=== PATIENT | female | born 1950 | race Caucasian/White ===

== ENCOUNTER 2022-09-16 10:32 | Inpatient (IN) | payer OTHER ==
[~2022-09-16] VITALS: Ht 185.4 cm; Wt 74.3 kg
[2022-09-16] MEDS ORDERED: FUROSEMIDE 40 MG/4 ML VIAL IV ONE (10:45)
[2022-09-16] MEDS ORDERED: DIGOXIN (250MCG/ML) 2 ML AMPULE IV ONE (10:45)
[2022-09-16 11:13] LABS: Basophils # (auto) 0 10 ^3/uL (0-0.2); Eosinophils # (auto) 0.1 10 ^3/uL (0-0.8); Hemoglobin 12.8 g/dL (12.2-16.2); Mean Corpuscular Hemoglobin 26.8 pg (28.0-32.0); Monocytes # (auto) 0.9 10 ^3/uL (0-1.3); Neutrophils # (auto) 2.9 10 ^3/uL (1.6-8.6); Nucleated Red Blood Cells % 0.1 %; White Blood Cell 4.9 10^3/uL (4.4-10.8)
[2022-09-16 11:14] LABS: Basophils % (auto) 0.3 % (0.0-2.0); Eosinophils % (auto) 1.9 % (0.0-7.0); Hematocrit 39.3 % (36.0-46.0); Lymphocytes % (auto) 20.1 % (10.0-50.0); Mean Corpuscular Hgb Conc. 32.5 g/dL (32.0-36.0); Mean Corpuscular Volume 82.6 fL (80.0-100.0); Monocytes % (auto) 18.2 % (0.0-12.0); Neutrophils % (auto) 59.5 % (37.0-80.0); Red Blood Cells 4.76 10^6/uL (4.0-5.20); Red Cell Distribution Width 14.8 % (11.8-14.3)
[2022-09-16 11:37] LABS: Albumin 3.8 g/dL (3.4-5.0); BUN/Creatinine Ratio 22.2 (10.0-20.0); Calcium 8.9 mg/dL (8.5-10.1); Magnesium 2.3 mg/dL (1.6-2.6); Potassium 4.1 mmol/L (3.5-5.1)
[2022-09-16 11:40] LABS: Bilirubin, Total 0.8 mg/dL (0.2-1.0); Total Protein 6.5 g/dL (6.4-8.2)
[2022-09-16] MEDS ORDERED: METOPROLOL TARTRATE 1MG/1ML-5ML VIAL IV ONE ×2 (11:45→12:15)
[2022-09-16] MEDS ORDERED: dilTIAZem 25 MG/5 ML VIAL IV ONE ×2 (13:00→15:15)
[2022-09-16 14:27] LABS: Urine Bacteria MANY /hpf (None Seen); Urine Blood Negative /uL (Negative); Urine Hyaline Cast FEW /lpf (0 - 2); Urine Mucus FEW (None Seen); Urine Specific Gravity 1.007 (1.001-1.035); Urine WBC 1 /hpf (0 - 5)
[2022-09-16] MEDS ORDERED: dilTIAZem 125mg/125ml BAG KIT 125 ML IV ONE (15:15)
[2022-09-16] MEDS ORDERED: MORPHINE SULFATE INJ 2 MG/ml SYRG IV PRN (19:00)
[2022-09-16] MEDS ORDERED: DOCUSATE SOD 100 MG CAP PO PRN (19:00)
[2022-09-16] MEDS ORDERED: ACETAMINOPHEN 325 MG TAB PO PRN (19:00)
[2022-09-16] MEDS ORDERED: HYDROmorphone HCL 2 MG/ML VL/or syr IV PRN (19:00)
[2022-09-16] MEDS ORDERED: HYDROcodone-ACET 5/325MG TAB PO PRN (19:00)
[2022-09-16] MEDS ORDERED: NITROGLYCERIN 0.4 MG SL TAB SL PRN (19:00)
[2022-09-16] MEDS: ENOXAPARIN SOD 80 MG/0.8ML SYRINGE SC SCH (23:00)
[2022-09-16] MEDS: SODIUM CHLOR 0.9% PF (SALINE LOCK) 10ML VIAL/SYR IV SCH (23:00)
[2022-09-16] MEDS: METOPROLOL TARTRATE 25 MG TAB PO SCH (23:01)
[2022-09-17] VITALS (75 sets, daily range): BP systolic 76–125; BP diastolic 47–89
[2022-09-17] MEDS: dilTIAZem 125mg/125ml BAG KIT 125 ML IV SCH (03:00)
[2022-09-17] MEDS: SODIUM CHLOR 0.9% PF (SALINE LOCK) 10ML VIAL/SYR IV SCH ×3 (05:31→21:36)
[2022-09-17] MEDS ORDERED: OMEP20TA PO (07:10)
[2022-09-17] MEDS: ENOXAPARIN SOD 80 MG/0.8ML SYRINGE SC SCH ×2 (10:15→21:34)
[2022-09-17] MEDS: METOPROLOL TARTRATE 25 MG TAB PO SCH ×2 (10:16→21:35)
[2022-09-17] MEDS ORDERED: FUROSEMIDE 20 MG/2 ML VIAL IV ONE (10:45)
[2022-09-17] MEDS ORDERED: METOPROLOL TARTRATE 25 MG TAB PO ONE (10:45)
[2022-09-17] MEDS ORDERED: POTASSIUM CHL 20 Meq TABLET PO ONE (10:45)
[2022-09-17 12:01] LABS: BUN/Creatinine Ratio 17.3 (10.0-20.0); Calcium 8.7 mg/dL (8.5-10.1); Magnesium 2.3 mg/dL (1.6-2.6); Potassium 3.8 mmol/L (3.5-5.1)
[2022-09-17] MEDS ORDERED: DIGOXIN (250MCG/ML) 2 ML AMPULE IV ONE (13:00)
[2022-09-17] MEDS: ONDANSETRON HCL 4 MG/2 ML VIAL IV PRN (15:22)
[2022-09-17] MEDS ORDERED: PANTOPRAZOLE 40 MG/10 ML VIAL INJ IV ONE (17:45)
[2022-09-17] MEDS: FUROSEMIDE 20 MG/2 ML VIAL IV SCH (17:45)
[2022-09-17] MEDS: POTASSIUM CHL 20 Meq TABLET PO SCH (21:35)
[2022-09-18] VITALS (76 sets, daily range): BP systolic 86–126; BP diastolic 45–82
[2022-09-18] MEDS: dilTIAZem 125mg/125ml BAG KIT 125 ML IV SCH (03:30)
[2022-09-18 04:39] LABS: Magnesium 2.2 mg/dL (1.6-2.6); Potassium 3.9 mmol/L (3.5-5.1)
[2022-09-18 04:41] LABS: BUN/Creatinine Ratio 18.8 (10.0-20.0)
[2022-09-18] MEDS: FUROSEMIDE 20 MG/2 ML VIAL IV SCH ×2 (06:23→17:34)
[2022-09-18] MEDS: SODIUM CHLOR 0.9% PF (SALINE LOCK) 10ML VIAL/SYR IV SCH ×3 (06:23→21:40)
[2022-09-18] MEDS: POTASSIUM CHL 20 Meq TABLET PO SCH ×2 (09:41→21:40)
[2022-09-18] MEDS: ENOXAPARIN SOD 80 MG/0.8ML SYRINGE SC SCH ×2 (09:41→21:40)
[2022-09-18] MEDS: PANTOPRAZOLE 40 MG TAB PO SCH (09:41)
[2022-09-18] MEDS: METOPROLOL TARTRATE 25 MG TAB PO SCH ×2 (10:00→21:41)
[2022-09-18] MEDS ORDERED: PANTOPRAZOLE 40 MG/10 ML VIAL INJ IV SCH (10:00)
[2022-09-18] MEDS ORDERED: AMIODARONE HCL 200 MG TAB PO ONE (10:30)
[2022-09-18] MEDS ORDERED: DIGOXIN (250MCG/ML) 2 ML AMPULE IV ONE (10:30)
[2022-09-18] MEDS: ONDANSETRON HCL 4 MG/2 ML VIAL IV PRN (12:37)
[2022-09-18] MEDS: AMIODARONE HCL 200 MG TAB PO SCH (21:40)
[2022-09-19] VITALS (49 sets, daily range): BP systolic 81–121; BP diastolic 48–95
[2022-09-19 04:51] LABS: Hematocrit 37.8 % (36.0-46.0); Hemoglobin 12.6 g/dL (12.2-16.2); Mean Corpuscular Hemoglobin 27.3 pg (28.0-32.0); Mean Corpuscular Hgb Conc. 33.3 g/dL (32.0-36.0); Mean Corpuscular Volume 81.8 fL (80.0-100.0); Red Blood Cells 4.62 10^6/uL (4.0-5.20); Red Cell Distribution Width 14.1 % (11.8-14.3); White Blood Cell 7.7 10^3/uL (4.4-10.8)
[2022-09-19 04:52] LABS: Basophils % (manual) 0 (0.0-2.0); Blast Cells 0; Eosinophils % (manual) 0 (0-7); Promyelocytes % 0; Reactive Lymphocytes 0
[2022-09-19 05:24] LABS: BUN/Creatinine Ratio 17.4 (10.0-20.0); Calcium 8.1 mg/dL (8.5-10.1); Potassium 3.9 mmol/L (3.5-5.1)
[2022-09-19] MEDS: FUROSEMIDE 20 MG/2 ML VIAL IV SCH ×2 (06:00→19:17)
[2022-09-19] MEDS: SODIUM CHLOR 0.9% PF (SALINE LOCK) 10ML VIAL/SYR IV SCH ×2 (06:14→16:10)
[2022-09-19 07:57] LABS: Band Neutrophils % (manual) 8; Lymphocytes % (manual) 12 (10.0-50.0); Metamyelocytes % 3; Monocytes % (manual) 12 (0-12); Myelocytes % 3
[2022-09-19] MEDS: METOPROLOL TARTRATE 25 MG TAB PO SCH (10:00)
[2022-09-19] MEDS: POTASSIUM CHL 20 Meq TABLET PO SCH (10:38)
[2022-09-19] MEDS: ENOXAPARIN SOD 80 MG/0.8ML SYRINGE SC SCH (10:38)
[2022-09-19] MEDS: PANTOPRAZOLE 40 MG TAB PO SCH (10:39)
[2022-09-19] MEDS: AMIODARONE HCL 200 MG TAB PO SCH (10:40)
[2022-09-19] MEDS ORDERED: cefTRIAXone 1GM/50ML D5W 50 ML IV SCH (12:15)
== END 2022-09-19 21:02 | disposition short-term general hospital (02) | DRG 291 ==
LOC: ER 10:32 → EDBD 10:32 → TELE 19:05 → ICU WEST 09-17 02:10 → DOU IN ICU 09-18 23:07
PROVIDERS: ADMIT Nurse Practitioner Acute Care; ATTEND Nurse Practitioner Acute Care
DX: I50.21 Acute systolic (congestive) heart failure (principal); J96.01 Acute respiratory failure with hypoxia; J91.8 Pleural effusion in other conditions classified elsewhere; I48.91 Unspecified atrial fibrillation; Z20.822 Contact with and (suspected) exposure to COVID-19; Z87.11 Personal history of peptic ulcer disease
CPT/HCPCS: 36415; 71045; 80048; 80053; 81001; 83516; 83735; 83880; 84439; 84443; 84484; 85007; 85025; 85027; 86141; 86225; 86235; 86431; 87081; 87426; 93005; 93306; 93970; 96365; 96375; 96376; 99291; G0378; J0696; J2405

== ENCOUNTER 2024-11-02 20:31 | Inpatient (IN) | payer OTHER ==
[~2024-11-02] VITALS: Ht 172.7 cm; Wt 69.5 kg
[~2024-11-02 20:31] MED LIST: OMEP20TA PO
--- NOTE | 2024-11-02 20:47 | ED.PDOC ---
SOB-HPI HPI Comments 74 year old female presents to the ED via EMS with a chief complaint of shortness of breath onset 2 days. Per EMS, patient was diagnosed with COVID 2 days ago, since then shortness of breath has worsened. Patient was placed on NRB, was given IV fluids in route to ED. Patient's HR was between 160-180. PMHx a-fib. Denies nausea, vomiting, diarrhea, headache, dizziness. No other symptoms or modifying factors present at this time. Time Seen by MD: 20:40 Primary Care Provider: Darron Delcid notes: Medications, Allergies Information Source: Patient, Emergency Med Personnel Mode of Arrival: EMS Severity: Moderate Timing: Days Duration: Since onset Context: At Rest PE Risk Factors: None History of: Recent URI Prehospital treatment: IVF, Oxygen Past Medical History PAST MEDICAL HISTORY: AFIB Surgical History: Tonsillectomy CHEF SAUCIER History: Denies all CHEF SAUCIER Hx Family History Family History: Reviewed,noncontributory to illness Social History Smoker: Non-Smoker Alcohol: Occasionally Drugs: Denies Drug Use Lives In: Home Constitutional: denies: chills, diaphoresis, fatigue, fever, malaise, sweats, weakness, others EENTM: denies: blurred vision, double vision, ear bleeding, ear discharge, ear drainage, ear pain, ear ringing, eye pain, eye redness, hearing loss, mouth pain, mouth swelling, nasal discharge, nose bleeding, nose congestion, nose pain, photophobia, tearing, throat pain, throat swelling, voice changes, others Respiratory: reports: shortness of breath; denies: cough, hemoptysis, orthopnea, SOB at rest, SOB with excertion, stridor, wheezing, others Cardiovascular: denies: chest pain, dizzy spells, diaphoresis, Dyspnea on exertion, edema, irregular heart beat, left arm pain, lightheadedness, palpitations, PND, syncope, others Gastrointestinal: denies: abdomen distended, abdominal pain, blood streaked bowels, constipated, diarrhea, dysphagia, difficulty swallowing, hematemesis, melena, nausea, poor appetite, poor fluid intake, rectal bleeding, rectal pain, vomiting, others Genitourinary: denies: abnormal vagina bleeding, burning, dyspareunia, dysuria, flank pain, frequency, hematuria, incontinence, pain, , vagina discharge, urgency, others Neurological: denies: dizziness, fainting, headache, left sided numbness, left sided weakness, numbness, paresthesia, pre-existing deficit, right sided numbness, right sided weakness, seizure, speech problems, tingling, tremors, weakness, others Musculoskeletal: denies: back pain, gout, joint pain, joint swelling, muscle pain, muscle stiffness, neck pain, others Integumetry: denies: bruises, change in color, change in hair/nails, dryness, laceration, lesions, lumps, rash, wounds, others Allergic/Immunocompromised: denies: Difficulty Healing, Frequent Infections, Hives, Itching, others Hematologic/Lymphatic: denies: anemia, blood clots, easy bleeding, easy bruising, swollen glands, others Endocrine: denies: excessive hunger, excessive sweating, excessive thirst, excessive urination, flushing, intolerance to cold, intolerance to heat, un explained weight gain, unexplained weight loss, others Psychiatric: denies: anxiety, bipolar disorder, depression, hopeless, panic disorder, schizophrenia, sleepless, suicidal, others All Other Systems: Reviewed and Negative Physical Exam General Appearance: Normal HEENT: Normal ENT Inspection, Pharynx Normal, TMs Normal Neck: Full Range of Motion, Non-Tender, Normal, Normal Inspection Respiratory: Chest Non-Tender, Lungs Clear, No Accessory Muscle Use, No Respiratory Distress, Normal Breath Sounds Cardiovascular: No Edema, No JVD, No Murmur, No Gallop, Normal Peripheral Pulses, Regular Rate/Rhythm Breast Exam: Deferred Gastrointestinal: No Organomegaly, Non Tender, No Pulsatile Mass, Normal Bowel Sounds, Soft Genitalia: Deferred Pelvic: Deferred Rectal: Deferred Extremities: No calf tenderness, Normal capillary refill, Normal inspection, Normal range of motion, Non-tender, No pedal edema Musculoskeletal : Apperance: Normal Neurologic: Alert, events director II-XII nml as Tested, No Motor Deficits, Normal Affect, Normal Mood, No Sensory Deficits Cerebellar Function: Normal Reflexes: Normal Skin: Dry, Normal Color, Warm Lymphatic: No Adenopathy Was a procedure done? Was a procedure done?: No Differential Dx Differential Diagnosis: Asthma, Bronchitis, CHF, COPD, Pneumonia, Pneumothorax, Pulmonary Embolism, Respiratory Distress, URI, Other X-Ray, Labs, Meds, VS Vital Signs Date Time Temp Pulse Resp B/P (MAP) Pulse Ox O2 Delivery O2 Flow Rate FiO2 11/02/24 22:01 92 Non-Rebreather 15 N/A 11/02/24 21:45 25 92 Non-Rebreather 15 N/A 11/02/24 21:42 98.3 147 25 155/123 (134) 92 98.3 11/02/24 20:39 99.7 145 30 123/61 91 99.7 11/02/24 20:33 145 Lab Test 11/02/24 21:58 11/02/24 21:00 Range/Units Troponin I High Sensitivity 42 *H 18 </=34 ng/L White Blood Count 2.4 L 4.4-10.8 10^3/uL Red Blood Count 4.12 4.0-5.20 10^6/uL Hemoglobin 11.1 L 12.2-16.2 g/dL Hematocrit 34.1 L 36.0-46.0 % Mean Corpuscular Volume 82.8 80.0-100.0 fL Mean Corpuscular Hemoglobin 27.0 L 28.0-32.0 pg Mean Corpuscular Hemoglobin Concent 32.6 32.0-36.0 g/dL Red Cell Distribution Width 19.2 H 11.8-14.3 % Platelet Count 53 L 140-450 10^3/uL Mean Platelet Volume 9.3 6.9-10.8 fL Neutrophils (%) (Auto) 37.0-80.0 % Lymphocytes (%) (Auto) 10.0-50.0 % Monocytes (%) (Auto) 0.0-12.0 % Basophils (%) (Auto) 0.0-2.0 % Neutrophils # (Auto) 1.6-8.6 10 ^3/uL Lymphocytes # (Auto) 0.4-5.4 10 ^3/uL Monocytes # (Auto) 0-1.3 10 ^3/uL Differential Total Cells Counted 100.0 100 Neutrophils % (Manual) 65 37.0-80.0 Band Neutrophils % (Manual) 0 Lymphocytes % (Manual) 14 10.0-50.0 Monocytes % (Manual) 21 H 0-12 Eosinophils % (Manual) 0 0-7 Basophils % (Manual) 0 0.0-2.0 Metamyelocytes % (manual) 0 Myelocytes % (Manual) 0 Promyelocytes % (Manual) 0 Blast Cells % (Manual) 0 Reactive Lymphocytes 0 Platelet Estimate Decreased Anisocytosis (manual) Slight Tanya Cells Few Prothrombin Time 13.0 H 9.3-11.8 sec Prothrombin Time INR 1.25 H 0.9-1.15 Activated Partial Thromboplast Time 43.2 H 24.5-34.5 SEC Sodium Level 142 136-145 mmol/L Potassium Level 4.0 3.5-5.1 mmol/L Chloride Level 107 98-107 mmol/L Carbon Dioxide Level 22 20-31 mmol/L Anion Gap 13 5-15 Blood Urea Nitrogen 18 9-23 mg/dL Creatinine 1.16 H 0.550-1.02 mg/dL Glomerular Filtration Rate Calc 49 >90 mL/min BUN/Creatinine Ratio 15.5 10.0-20.0 Serum Glucose 155 H 74-106 mg/dL Lactic Acid Level 2.8 *H 0.4-2.0 mmol/L Calcium Level 8.0 L 8.7-10.4 mg/dL Total Bilirubin 0.5 0.2-1.0 mg/dL Aspartate Amino Transferase (AST) 56 H 13-40 U/L Alanine Aminotransferase (ALT) 38 7-40 U/L Alkaline Phosphatase 59 46-116 U/L B-Type Natriuretic Peptide 376.54 0-100 pg/mL Total Protein 6.1 5.7-8.2 g/dL Albumin 4.2 3.2-4.8 g/dL Current Medications Medications (Trade) Dose Ordered Sig/Juan Route Start Time Stop Time Status Last Admin Amiodarone HCl 100 ml @ 600 mls/hr ONCE ONCE IV 11/02/24 20:45 11/02/24 20:54 DC 11/02/24 21:36 Amiodarone HCL/ Dextrose 200 ml @ 33.33 mls/ hr ONCE ONCE IV 11/02/24 21:00 11/03/24 03:00 11/02/24 21:50 Time of 1ST Reevaluation: 21:10 Reevaluation 1ST: Unchanged Patient Education/Counseling: Diagnosis, Treatment Family Education/Counseling: No Family Present SEPSIS Sepsis Screen Physician Orders Electrocardigram (11/02/24 20:45) Electrocardigram (11/02/24 23:45) Troponin-I Hs (11/03/24 00:00) Troponin-I Hs (11/03/24 03:00) Troponin-I Hs (11/03/24 06:00) Blood Culture (11/02/24 20:44) Chest Portable (11/02/24 20:44) Cylinder Handler (11/02/24 20:44) Covid19 Antigen Taylor (11/02/24 ) Rapid Influenza A&B (11/02/24 20:44) Amiodarone 360mg/200ml Premix (Nexterone (11/02/24 21:00) Amiodarone 360mg/200ml Premix (Nexterone (11/03/24 03:00) Ceftriaxone 1gm/50ml D5w (Rocephin) (11/02/24 22:45) Azithromycin 500mg/ 250ml (Zithromax 50 (11/02/24 22:45) Aspirin Tablet (11/02/24 22:45) Vital Signs Date Time Temp Pulse Resp B/P (MAP) Pulse Ox O2 Delivery O2 Flow Rate FiO2 11/02/24 22:01 92 Non-Rebreather 15 N/A 11/02/24 21:45 25 92 Non-Rebreather 15 N/A 11/02/24 21:42 98.3 147 25 155/123 (134) 92 98.3 11/02/24 20:39 99.7 145 30 123/61 91 99.7 11/02/24 20:33 145 Laboratory Tests Test 11/02/24 21:00 Lactic Acid Level 2.8 mmol/L (0.4-2.0) *H White Blood Count 2.4 10^3/uL (4.4-10.8) L Medications Medications Dose Ordered Sig/Juan Route Start Time Stop Time Status Last Admin Dose Admin Amiodarone HCl 100 ml @ 600 mls/hr ONCE ONCE IV 11/02/24 20:45 11/02/24 20:54 DC 11/02/24 21:36 Amiodarone HCL/ Dextrose 200 ml @ 33.33 mls/ hr ONCE ONCE IV 11/02/24 21:00 11/03/24 03:00 11/02/24 21:50 Departure 1 Departure Time of Disposition: 22:39 Impression: Primary Impression: Atrial fibrillation with rapid ventricular response Additional Impressions: Pneumonia Acute coronary syndrome Disposition: 09 ADMITTED INPATIENT Admit to: Med Surg Condition: Guarded Comments Lab and chest x-ray results reviewed. Troponin is rising and lactic acid mildly elevated 2.8. Chest x-ray suggests pneumonia. Patient was given aspirin and started on amiodarone for rate control of her AFib and given IV antibiotics for pneumonia. Patient will need admission for AFib with rapid ventricular response, pneumonia and acute coronary syndrome Critical Care Note Critical Care Time?: No Stability Stability form required: No Heart Score Heart Score: Heart Score Response (Comments) Value History Moderate Suspicious 1 EKG Repolarization Disturb 1 Age >65 2 Risk Factors >3 or Hx ASHD 2 Troponin 1-2 x's Normal limit 1 Total 7 I personally scribed for TEVIN RUIZ MD ([email or web address]) on 11/02/24 at 20:47. Electronically submitted by Alodnra Raphael ([email or web address]). TEVIN RUIZ MD Nov 02, 2024 20:47
[2024-11-02 21:35] LABS: Hematocrit 34.1 % (36.0-46.0)
[2024-11-02] MEDS: AMIODARONE BOLUS KIT 100 ML IV ONE (21:36)
[2024-11-02 21:39] LABS: Hemoglobin 11.1 g/dL (12.2-16.2); Mean Corpuscular Hemoglobin 27.0 pg (28.0-32.0); Mean Corpuscular Volume 82.8 fL (80.0-100.0)
[2024-11-02 21:45] VITALS: RESP 25; O2SAT 92
[2024-11-02 21:45] LABS: INR 1.25 (0.9-1.15); Partial Thromboplastin Time 43.2 SEC (24.5-34.5); Prothrombin Time 13.0 sec (9.3-11.8)
[2024-11-02] MEDS: AMIODARONE 360mg/200mL PREMIX 200 ML IV ONE (21:50)
[2024-11-02 21:53] LABS: Lactic Acid w/Reflex 2.8 mmol/L (0.4-2.0)
[2024-11-02 21:58] LABS: Alanine Aminotransferase 38 U/L (7-40); Albumin 4.2 g/dL (3.2-4.8); Alkaline Phosphatase 59 U/L (46-116); Anion Gap 13 (5-15); BUN/Creatinine Ratio 15.5 (10.0-20.0); Bilirubin, Total 0.5 mg/dL (0.2-1.0); Blood Urea Nitrogen 18 mg/dL (9-23); Carbon Dioxide 22 mmol/L (20-31); Potassium 4.0 mmol/L (3.5-5.1); Sodium 142 mmol/L (136-145); Total Protein 6.1 g/dL (5.7-8.2)
[2024-11-02 21:59] LABS: Calcium 8.0 mg/dL (8.7-10.4); Chloride 107 mmol/L (98-107); Glucose 155 mg/dL (74-106)
--- NOTE | 2024-11-02 22:14 | DVH ---
EXAMINATION: XY CHEST PORTABLE CLINICAL HISTORY: SOB COMPARISON: XY CHEST PORTABLE on DOS: 09/19/22, XY CHEST PORTABLE on DOS: 09/16/22 FINDINGS: Apices partially obscured. Lead wires overlie the thorax. Streaky bibasilar opacities. Central vascular redistribution. Large airspace opacity right lower lung field. Prominence of the cardiac silhouette may be in part exaggerated by technique. No definite pneumothora x or pleural effusion. IMPRESSION: Large airspace opacity in the right lower lung field may be of infectious etiology. Additional bibasilar atelectasis/infiltrates as well. Pulmonary vascular congestion.
[2024-11-02 22:20] LABS: Total Cells Counted 100.0 (100)
[2024-11-02 22:22] LABS: Anisocytosis Slight
[2024-11-02] MEDS: cefTRIAXone 1GM/50ML D5W 50 ML IV ONE (22:56)
[2024-11-02] MEDS: AZITHROMYCIN 500MG/ 250ML 250 ML IV ONE (23:24)
[2024-11-03] VITALS (11 sets, daily range): BP systolic 91–101; BP diastolic 57–69; PULSE 104–135; RESP 13–29; TEMP 97.9–98.3; O2SAT 91–99
[2024-11-03] LABS: COVID19 ANTIGEN SOFIA FIA POSITIVE (NEGATIVE)
[2024-11-03] MEDS: NOREPINEPHRINE 8 MG/250ML KIT 250 ML IV SCH (00:30)
[2024-11-03] MEDS: SODIUM CHLORIDE 0.9% 1,000 ML IV ONE (00:49)
[2024-11-03] MEDS: AMIODARONE 360mg/200mL PREMIX 200 ML IV SCH (03:23)
--- NOTE | 2024-11-03 10:51 | ECG ---
[facility] Test Date: 2024-11-02 Test Time: 20:33:40 Pat Name: PILY MONTENEGRO Department: Room: [address] [place] [address] Gender: F Security Clerk: : 1950 Requested By: TEVIN RUIZ Order Number: [id number] Reading MD: Ravindra Cooper Measurements Intervals [place] Rate: 145 P: 0 OH: 0 QRS: -20 QRSD: 92 T: 134 QT: 343 QTc: 533 Interpretive Statements Atrial fibrillation with rapid V-rate Borderline left axis deviation Low voltage, precordial leads Nonspecific T abnrm, anterolateral leads Electronically Signed On 11-03-2024 13:12:35 PDT by Ravindra Cooper Please click the below link to view image of tracing.
--- NOTE | 2024-11-03 10:53 | DVHHP2 ---
History of Present Illness Reason for Visit: Shortness of breath History of Present Illness Leticia Cordero is a 74-year-old female with past medical history of AFib, CHF, hypertension, and tonsillectomy who presents to the ED with shortness of breath that has been worsening in the last 2 days. Patient reports that she was at [facility] 2 days ago and was diagnosed with COVID. Per reports patient was placed on non-rebreather was given IV fluids EN route to the ED with a heart rate between 160-180. Upon examination patient is currently on 8 L mustache Oxymizer also noted is at drainage and Woodruff is cloudy. Patient reports that she did not take her medications for the last 2 days. Patient denies any recent travels, recent sick contacts, recent ingestion of spoiled food, recent travels, fever, chills, lightheadedness, weakness, dizzi ness, chest pain, abdominal pain, nausea, vomiting, or diarrhea. Nurse reports that patient just started coughing up blood once patient was already examined. Cardiovascular: AFIB, CHF, HTN Past Surgical History: Tonsillectomy Family History: None Smoke: No ALCOHOL: none Drugs: None Lives: with Family Domestic Violence: Neg Review of Systems Respiratory: Shortness of breath Allergies: Coded Allergies: NO KNOWN ALLERGIES (Unverified , 09/16/22) Medications Current Medications Medications Dose Ordered Sig/Juan Route Start Time Stop Time Status Last Admin Dose Admin Amiodarone HCL/ Dextrose 200 ml @ 16.66 mls/ hr Q12H IV 11/03/24 03:00 11/03/24 03:23 16.66 MLS/HR Norepinephrine Bitartrate 250 ml @ 3.75 mls/hr Q24H IV 11/03/24 00:30 Exam Vital Signs Vital Signs Date Time Temp Pulse Resp B/P (MAP) Pulse Ox O2 Delivery O2 Flow Rate FiO2 11/03/24 07:30 104 18 88/62 (71) 95 11/03/24 07:30 Non-Rebreather 15 N/A 11/02/24 21:42 98.3 98.3 General Appearance: Alert, Oriented X3, Cooperative, mild distress HEENT: Atraumatic, PERRLA, EOMI, Mucous membr. moist/pink Cardiovascular: Normal S1, Normal S2 Abdominal: Normal bowel sounds, Soft Extremities: No tenderness/swelling Neuro: Normal speech, Normal tone, Sensation intact Psych/Mental Status: Mental status NL, Mood NL Labs/Xrays Labs Test 11/03/24 06:31 11/02/24 23:03 11/02/24 23:02 11/02/24 21:00 Range/Units Troponin I High Sensitivity 222 *H </=34 ng/L Influenza Type A Antigen Negative Negative Influenza Type B Antigen Negative Negative SARS-CoV-2 Antigen (Rapid) Positive NEGATIVE Lactic Acid Level 2.5 *H 0.4-2.0 mmol/L White Blood Count 2.4 L 4.4-10.8 10^3/uL Red Blood Count 4.12 4.0-5.20 10^6/uL Hemoglobin 11.1 L 12.2-16.2 g/dL Hematocrit 34.1 L 36.0-46.0 % Mean Corpuscular Volume 82.8 80.0-100.0 fL Mean Corpuscular Hemoglobin 27.0 L 28.0-32.0 pg Mean Corpuscular Hemoglobin Concent 32.6 32.0-36.0 g/dL Red Cell Distribution Width 19.2 H 11.8-14.3 % Platelet Count 53 L 140-450 10^3/uL Mean Platelet Volume 9.3 6.9-10.8 fL Neutrophils (%) (Auto) 37.0-80.0 % Lymphocytes (%) (Auto) 10.0-50.0 % Monocytes (%) (Auto) 0.0-12.0 % Basophils (%) (Auto) 0.0-2.0 % Neutrophils # (Auto) 1.6-8.6 10 ^3/uL Lymphocytes # (Auto) 0.4-5.4 10 ^3/uL Monocytes # (Auto) 0-1.3 10 ^3/uL Differential Total Cells Counted 100.0 100 Neutrophils % (Manual) 65 37.0-80.0 Band Neutrophils % (Manual) 0 Lymphocytes % (Manual) 14 10.0-50.0 Monocytes % (Manual) 21 H 0-12 Eosinophils % (Manual) 0 0-7 Basophils % (Manual) 0 0.0-2.0 Metamyelocytes % (manual) 0 Myelocytes % (Manual) 0 Promyelocytes % (Manual) 0 Blast Cells % (Manual) 0 Reactive Lymphocytes 0 Platelet Estimate Decreased Anisocytosis (manual) Slight Tanya Cells Few Prothrombin Time 13.0 H 9.3-11.8 sec Prothrombin Time INR 1.25 H 0.9-1.15 Activated Partial Thromboplast Time 43.2 H 24.5-34.5 SEC Sodium Level 142 136-145 mmol/L Potassium Level 4.0 3.5-5.1 mmol/L Chloride Level 107 98-107 mmol/L Carbon Dioxide Level 22 20-31 mmol/L Anion Gap 13 5-15 Blood Urea Nitrogen 18 9-23 mg/dL Creatinine 1.16 H 0.550-1.02 mg/dL Glomerular Filtration Rate Calc 49 >90 mL/min BUN/Creatinine Ratio 15.5 10.0-20.0 Serum Glucose 155 H 74-106 mg/dL Calcium Level 8.0 L 8.7-10.4 mg/dL Total Bilirubin 0.5 0.2-1.0 mg/dL Aspartate Amino Transferase (AST) 56 H 13-40 U/L Alanine Aminotransferase (ALT) 38 7-40 U/L Alkaline Phosphatase 59 46-116 U/L B-Type Natriuretic Peptide 376.54 0-100 pg/mL Total Protein 6.1 5.7-8.2 g/dL Albumin 4.2 3.2-4.8 g/dL EXAMINATION: XY CHEST PORTABLE CLINICAL HISTORY: SOB COMPARISON: XY CHEST PORTABLE on DOS: 09/19/22, XY CHEST PORTABLE on DOS: 09/16/22 FINDINGS: Apices partially obscured. Lead wires overlie the thorax. Streaky bibasilar opacities. Central vascular redistribution. Large airspace opacity right lower lung field. Prominence of the cardiac silhouette may be in part exaggerated by technique. No definite pneumothorax or pleural effusion. IMPRESSION: Large airspace opacity in the right lower lung field may be of infectious etiology. Additional bibasilar atelectasis/infiltrates as well. Pulmonary vascular congestion. SEPSIS Sepsis Screen Date sepsis recognized/suspect: Nov 02, 2024 Time Sepsis recognized/suspect: 2141 Recent Procedure: No On Antibiotic Therapy: No Respiratory Rate >20: Yes Heart Rate >90: Yes Temp<36 C (96.8 F) or >38.3 C: No SBP <90 or MAP <65 mmHG: No New Acute Mental Status Change: No Is the patient on CPAP, BIPAP,: No Physician Orders Insert/Manage Urinary Catheter QSHIFT (11/03/24 04:22) Vital Signs Date Time Temp Pulse Resp B/P (MAP) Pulse Ox O2 Delivery O2 Flow Rate FiO2 11/03/24 07:30 104 18 88/62 (71) 95 11/03/24 07:30 104 18 95 Non-Rebreather 15 N/A 11/03/24 06:58 109 21 93/65 (74) 95 11/03/24 06:00 94 15 93/58 (70) 94 11/03/24 05:00 98 16 91/62 (72) 99 11/03/24 04:00 100 15 88/60 (69) 96 11/03/24 03:00 105 17 95/64 (74) 98 Laboratory Tests Test 11/02/24 23:02 Lactic Acid Level 2.5 mmol/L (0.4-2.0) *H Medications Medications Dose Ordered Sig/Juan Route Start Time Stop Time Status Last Admin Dose Admin Amiodarone HCL/ Dextrose 200 ml @ 16.66 mls/ hr Q12H IV 11/03/24 03:00 11/03/24 03:23 16.66 MLS/HR Sodium Chloride 1,000 ml @ 1,000 mls/hr Q1H ONCE IV 11/03/24 00:30 11/03/24 01:29 DC 11/03/24 00:49 1,000 MLS/HR Assessment/Plan Assessment/Plan Assessment Acute hypoxic respiratory failure requiring supplemental oxygen COVID positive Lactic acidosis likely sepsis Pneumonia Hemoptysis AFib RVR Cloudy urine Woodruff catheterization likely due to UTI Thrombocytopenia Hyperglycemia ANDREW likely prerenal Elevated troponins Medication noncompliance History of tonsillectomy Plan Admit to ICU Strict I&Os Daily weight Echo Amio drip Albuterol and Atrovent treatments Supportive oxygen IV antibiotics-ceftriaxone + azithromycin Lactic noted Steroids Remdesivir Urine culture A1c ISS and Accu-Cheks UA Trend troponins Diet Home medications reconciled DVT prophylaxis-SCDs PUD prophylaxis-PPIs Discussed plan of care with patient and nurse Cardiology consulted Consider CTA chest if hemoptysis Counseled patient on medication adherence [id number] Preventive counseling healthy eating habits, physical activity, and regular checkups Plan discussed with: Patient Date of Service: Nov 03, 2024 Billing Provider: FLORENTINO WARE Common Visit Codes: [id number] INP/OBS CARE (HIGH) Secondary Visit Codes: [id number] COUNSELING IND FLORENTINO WARE LIBRARY SCIENCE INSTRUCTOR Nov 03, 2024 10:53
[2024-11-03] MEDS ORDERED: ONDANSETRON HCL 4 MG/2 ML VIAL IV PRN (11:00)
[2024-11-03] MEDS ORDERED: LISI10TA34 PO (12:33)
[2024-11-03] MEDS ORDERED: BISO5TAB44 PO (12:33)
[2024-11-03] MEDS ORDERED: DABI150C7 PO (12:33)
[2024-11-03] MEDS ORDERED: REMDESIVIR PER PHARMACY 0 ML IV SCH (12:45)
[2024-11-03 12:46] LABS: Urine Protein, UAD 1+ (Negative)
[2024-11-03] MEDS ORDERED: IPRATROPIUM BROM 0.5 MG/2.5ML INH SOL NEB SCH (14:00)
[2024-11-03] MEDS ORDERED: ALBUTEROL SULF 2.5 MG/0.5ML(0.5%) NEB SOLN NEB SCH (14:00)
[2024-11-03] MEDS: ALBUTEROL SULF HFA 90MCG INH 200DOSE IN PRN (16:09)
[2024-11-03] MEDS: methylPREDNISolone SOD SUCC 40 MG/ML VL IV SCH (16:19)
[2024-11-03 16:40] LABS: Alanine Aminotransferase 30 U/L (7-40); Albumin 3.6 g/dL (3.2-4.8); Anion Gap 8 (5-15); BUN/Creatinine Ratio 17.4 (10.0-20.0); Blood Urea Nitrogen 15 mg/dL (9-23); Carbon Dioxide 25 mmol/L (20-31); Potassium 4.1 mmol/L (3.5-5.1); Sodium 143 mmol/L (136-145); Total Protein 5.8 g/dL (5.7-8.2)
[2024-11-03 16:41] LABS: Bilirubin, Total 0.5 mg/dL (0.2-1.0)
[2024-11-03 16:43] LABS: Alkaline Phosphatase 44 U/L (46-116); Calcium 7.9 mg/dL (8.7-10.4); Chloride 110 mmol/L (98-107); Glucose 120 mg/dL (74-106)
[2024-11-03] MEDS: MAGNESIUM SULFATE 1GM/100ML 100 ML IV ONE (17:50)
[2024-11-03] MEDS: AMIODARONE 360mg/200mL PREMIX 200 ML IV ONE (17:55)
[2024-11-03] MEDS: DIGOXIN (250MCG/ML) 2 ML AMPULE IV ONE (18:03)
[2024-11-03] MEDS: REMDESIVIR 200mg in NS 210mL LOADING DOSE ADULT IV ONE (18:19)
[2024-11-03] MEDS ORDERED: PATIENTS OWN MEDICATION (Lisinopril 1 TAB) PO SCH (22:00)
[2024-11-03] MEDS: DOXYCYCLINE 100MG/100ML 100 ML IV SCH (22:40)
[2024-11-04] VITALS (97 sets, daily range): BP systolic 81–120; BP diastolic 55–79; PULSE 81–141; RESP 10–33; TEMP 97.5–97.9; O2SAT 88–100
[2024-11-04] MEDS: FUROSEMIDE 20 MG/2 ML VIAL IV ONE ×3 (02:49→17:59)
[2024-11-04 07:32] LABS: Hemoglobin 11.0 g/dL (12.2-16.2)
[2024-11-04 07:34] LABS: Hematocrit 33.2 % (36.0-46.0); Mean Corpuscular Hemoglobin 26.8 pg (28.0-32.0); Mean Corpuscular Volume 80.8 fL (80.0-100.0)
[2024-11-04 07:36] LABS: Alanine Aminotransferase 24 U/L (7-40); Albumin 3.4 g/dL (3.2-4.8); Anion Gap 7 (5-15); BUN/Creatinine Ratio 23.9 (10.0-20.0); Blood Urea Nitrogen 21 mg/dL (9-23); Carbon Dioxide 26 mmol/L (20-31); Magnesium 2.0 mg/dL (1.6-2.6); Potassium 3.9 mmol/L (3.5-5.1); Sodium 141 mmol/L (136-145)
[2024-11-04 07:37] LABS: Bilirubin, Total 0.6 mg/dL (0.2-1.0)
[2024-11-04 07:57] LABS: Alkaline Phosphatase 43 U/L (46-116); Calcium 7.9 mg/dL (8.7-10.4); Chloride 108 mmol/L (98-107); Glucose 157 mg/dL (74-106); Total Protein 5.4 g/dL (5.7-8.2)
[2024-11-04 09:20] LABS: Triglycerides 63 mg/dL (< 150)
[2024-11-04 09:22] LABS: Cholesterol 79 mg/dL (< 200)
[2024-11-04 09:28] LABS: HDL Cholesterol 28 mg/dL (40-59)
[2024-11-04] MEDS: cefTRIAXone 1GM/50ML D5W 50 ML IV SCH (09:33)
[2024-11-04] MEDS: LISINOPRIL 5 MG TAB PO SCH (09:34)
[2024-11-04] MEDS: ENOXAPARIN SOD 30 MG/0.3 ML SYRINGE SC SCH (09:34)
[2024-11-04] MEDS ORDERED: AZITHROMYCIN 500MG/ 250ML 250 ML IV SCH (10:00)
[2024-11-04] MEDS ORDERED: PATIENTS OWN MEDICATION (Omeprazole (Gnp Omeprazole) 1 TAB) PO SCH (10:00)
[2024-11-04] MEDS: PANTOPRAZOLE 40 MG TAB PO SCH (10:09)
--- NOTE | 2024-11-04 10:35 | DVHINCON2 ---
Date Seen: Nov 04, 2024 Referring Physician BRIAN Michelle Reason for Consultation AFib RVR, elevated troponin History of Present Illness This is a 74-year-old female patient who presents to the emergency room with chief complaint of generalized weakness and worsening shortness of breath for two days prior to emergency room arrival. The patient has been diagnosed with COVID pneumonia on this admission. Cardiology has been consulted at this time for atrial fibrillation with rapid ventricular response and elevated troponin level. Initial twelve lead electrocardiogram reveals atrial fibrillation with rapid ventricular rate. Initial troponin level of 18ng/L with up trend and current peak level of 222ng/L. The patient denies any cardiac symptoms such as chest pain, palpitations, or shortness of breath at time of assessment. While in the emergency room, hospitalist initiated amiodarone bolus followed by amiodarone drip protocol, which patient is currently on at time of assessment. The patient is currently on 8 L Oxymizer during assessment. Significant past medical history includes atrial fibrillation (on dabigatran), direct current cardioversion approximately two months ago, congestive heart failure, hypertension, and osteoporosis. 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 Past Medical History Past medical history reviewed. No other significant than mentioned above. Past Surgical History Tonsillectomy Family History: Diabetes mellitus G8 FATHER FH: cancer G8 FATHER FH: emphysema G8 MOTHER FH: kidney failure G8 FATHER FH: liver cancer 19 CHILD FH: obesity G8 SISTER Family History Family history reviewed. Social History Denies the use of tobacco, alcohol or illicit drugs. Allergies: Coded Allergies: NO KNOWN ALLERGIES (Unverified , 09/16/22) Home Meds Reported Medications Dabigatran Etexilate Mesylate (Dabigatran Etexilate) 150 Mg Cap, CAP PO 11/03/24 Bisoprolol Fumarate (Bisoprolol Fumarate) 5 Mg Tab, TAB PO 11/03/24 Lisinopril (Lisinopril) 10 Mg Tab, 1 TAB PO BID 11/03/24 Omeprazole (Gnp Omeprazole) 20 Mg Tab, 1 TAB PO DAILY, #90 TAB 1 Refill 09/17/22 Home Meds Home medications reviewed. Current Medications Current Medications Medications (Trade) Dose Ordered Sig/Juan Route PRN Reason Start Time Stop Time Status Last Admin Ceftriaxone Sodium 50 ml @ 100 mls/hr DAILY@09 IV 11/04/24 09:00 11/04/24 09:33 Azithromycin 250 ml @ 125 mls/hr DAILY IV 11/04/24 10:00 11/03/24 16:01 DC Ondansetron HCl (Zofran) 4 mg Q4HP PRN IV NAUSEA / VOMITING 11/03/24 11:00 Acetaminophen (Tylenol Tablet) 650 mg Q6HP PRN PO PAIN SCALE 1-3 OR TEMP>100.4 11/03/24 11:00 Albuterol (Ventolin Medneb) 2.5 mg Q4HWA [facility] 11/03/24 14:00 11/03/24 14:11 DC Ipratropium [place] (Atrovent Medneb) 0.5 mg Q4HWA [facility] 11/03/24 14:00 11/03/24 14:11 DC Remdesivir 0 ml @ 0 mls/hr PER PHARMACY IV 11/03/24 12:45 11/07/24 12:46 Methylprednisolone Sodium Succinate (Solu Medrol) 40 mg Q8HR IV 11/03/24 14:00 11/04/24 05:43 Patient Own Medication 1 tab BID PO 11/03/24 22:00 UNV Patient Own Medication 1 tab DAILY PO 11/04/24 10:00 UNV Enoxaparin Sodium (Lovenox) 30 mg DAILY SC 11/04/24 10:00 Albuterol (Ventolin Hfa) 180 mcg TID PRN IN SHORTNESS OF BREATH 11/03/24 14:15 11/04/24 07:46 Doxycycline Hyclate 100 ml @ 100 mls/hr BID IV 11/03/24 22:00 11/04/24 10:07 Lisinopril (Zestril Tablet) 10 mg DAILY PO 11/04/24 10:00 Pantoprazole Sodium (Protonix Tablet) 40 mg DAILY PO 11/04/24 10:00 11/04/24 10:09 Remdesivir 100 mg/ Sodium Chloride 250 ml @ 250 mls/hr DAILY@1500 IV 11/04/24 15:00 11/07/24 15:59 Review of Systems Constitutional: Generalized weakness Ears, Nose, & Throat: No symptom reported Eyes: No symptom reported Neurological: No symptoms reported Pulmonary/Respiratory: Shortness of breath Cardiovascular: No symptom reported Gastrointestinal: No symptom reported Genitourinary: No symptom reported Musculoskeletal: No symptom reported Skin: No symptom reported Psychiatric: No symptom reported Endocrine: No symptom reported Hematologic/Lymphatic: No symptom reported Vital Signs Vital Signs Date Time Temp Pulse Resp B/P (MAP) Pulse Ox O2 Delivery O2 Flow Rate FiO2 11/04/24 09:34 96/64 11/04/24 07:31 103 29 97 11/04/24 06:00 Oxymizer 10 N/A 11/04/24 03:00 97.5 97.5 Physical Exam General Appearance: Cooperative. Well-developed. Well-nourished. No acute distress. Pulmonary/Respiratory: Diminished throughout. 8 L Oxymizer Cardiovascular/Chest: Irregularly irregular rate and rhythm Peripheral Pulses: 2+ Radial (R). 2+ Radial (L). 2+ Pedal (R). 2+ Pedal (L) Abdominal Exam: Normal bowel sounds. Soft, non-tender. Ankle Exam: Negative ankle edema Lower extremities: Negative lower extremity edema Neuro/Mental Status: A/OX4, coherent. Thoughts/Psych: Normal thought pattern. Appropriate mood and affect. Good judgment and insight. Appearance: No acute distress. Skin Exam: Normal inspection. Normal color. Warm and dry. Labs/Diagnostic Data Labs Test 11/04/24 07:00 11/03/24 13:11 11/03/24 12:34 11/03/24 06:31 Range/Units White Blood Count 13.2 #H 4.4-10.8 10^3/uL Red Blood Count 4.11 4.0-5.20 10^6/uL Hemoglobin 11.0 L 12.2-16.2 g/dL Hematocrit 33.2 L 36.0-46.0 % Mean Corpuscular Volume 80.8 80.0-100.0 fL Mean Corpuscular Hemoglobin 26.8 L 28.0-32.0 pg Mean Corpuscular Hemoglobin Concent 33.1 32.0-36.0 g/dL Red Cell Distribution Width 19.0 H 11.8-14.3 % Platelet Count 65 L 140-450 10^3/uL Mean Platelet Volume 9.9 6.9-10.8 fL Neutrophils (%) (Auto) 37.0-80.0 % Lymphocytes (%) (Auto) 10.0-50.0 % Monocytes (%) (Auto) 0.0-12.0 % Basophils (%) (Auto) 0.0-2.0 % Neutrophils # (Auto) 1.6-8.6 10 ^3/uL Lymphocytes # (Auto) 0.4-5.4 10 ^3/uL Monocytes # (Auto) 0-1.3 10 ^3/uL Sodium Level 141 136-145 mmol/L Potassium Level 3.9 3.5-5.1 mmol/L Chloride Level 108 H 98-107 mmol/L Carbon Dioxide Level 26 20-31 mmol/L Anion Gap 7 5-15 Blood Urea Nitrogen 21 9-23 mg/dL Creatinine 0.88 0.550-1.02 mg/dL Glomerular Filtration Rate Calc 69 >90 mL/min BUN/Creatinine Ratio 23.9 H 10.0-20.0 Serum Glucose 157 H 74-106 mg/dL Hemoglobin A1c 5.3 <5.7 % A1C Calcium Level 7.9 L 8.7-10.4 mg/dL Magnesium Level 2.0 1.6-2.6 mg/dL Total Bilirubin 0.6 0.2-1.0 mg/dL Aspartate Amino Transferase (AST) 37 13-40 U/L Alanine Aminotransferase (ALT) 24 7-40 U/L Alkaline Phosphatase 43 L 46-116 U/L Total Protein 5.4 L 5.7-8.2 g/dL Albumin 3.4 3.2-4.8 g/dL Triglycerides Level 63 < 150 mg/dL Cholesterol Level 79 < 200 mg/dL LDL Cholesterol 34 < 100 mg/dL HDL Cholesterol 28 L 40-59 mg/dL D-Dimer, Quantitative 0.49 0.0-0.49 mg/L FEU Urine Color Light-orange Yellow Urine Clarity Ex.turbid Clear Urine pH 5.5 5.0-9.0 Urine Specific [place] 1.024 1.001-1.035 Urine Protein 1+ H Negative Urine Ketones Negative Negative Urine Blood 1+ H Negative /uL Urine Nitrite Negative Negative Urine Bilirubin Negative Negative Urine Urobilinogen Normal Negative mg/dL Urine Leukocyte Esterase Negative Negative /uL Urine RBC 15 0 - 4 /hpf Urine Microscopic WBC 12 H 0-5 /HPF Urine Squamous Epithelial Cells None seen <5 /hpf Urine Bacteria None seen None Seen /hpf Urine Mucus Few None Seen Urine Glucose Normal Normal mg/dL Troponin I High Sensitivity 222 *H </=34 ng/L Test 11/02/24 23:03 8/27/25 23:02 11/02/24 21:00 Range/Units Influenza Type A Antigen Negative Negative Influenza Type B Antigen Negative Negative SARS-CoV-2 Antigen (Rapid) Positive NEGATIVE Lactic Acid Level 2.5 *H 0.4-2.0 mmol/L Anisocytosis (manual) Slight Hamilton Cells Few Prothrombin Time 13.0 H 9.3-11.8 sec Prothrombin Time INR 1.25 H 0.9-1.15 Activated Partial Thromboplast Time 43.2 H 24.5-34.5 SEC B-Type Natriuretic Peptide 376.54 0-100 pg/mL Microbiology Date/Time Source Procedure Growth Status 11/03/24 12:54 Urine - [place] Urine Culture - Preliminary Resulted 11/02/24 21:05 Blood Blood Culture - Preliminary NO GROWTH AFTER 24 HOURS OF INCUBATION. Resulted Assessment Atrial fibrillation with rapid ventricular response (takes dabigatran at home) Acute hypoxic respiratory failure secondary to COVID pneumonia NSTEMI type II secondary to above History of direct current cardioversion Rule out structural heart disease Thrombocytopenia Hypertension Osteoporosis Plan/Recommendation We will continue with the following plan/recommendations (Dr. Cooper): * Transthoracic echocardiogram to evaluate cardiac function * Diuresis as tolerated * [id number] VASc score: 4 points, HAS-BLED score: 1 point * Hold beta-jamison given borderline BP. Initiate when BP stable * Hold Lovenox given thrombocytopenia. SCDs in the meantime. Reinitiate NOAC prior to discharge with stable H&H and platelet count * Continue amiodarone drip per protocol * Digoxin loading dose * Monitor and replete electrolytes as needed, keep potassium greater than four and magnesium greater than two * Close Cardiac surveillance Thank you for allowing us to care for this patient. Please call with any questions or concerns. Critical care time spent: 44 minutes This medical document was created using an electronic medical record system with voice recognition software and computerized dictation system. Although this document has been carefully reviewed, there might still be some phonetic and typographical errors. Occasional wrong-word or ``sound-alike substitutions may have occurred due to the inherent limitations of voice recognition software. These areas are purely typographical due to imperfections of the software programs and do not reflect any compromise in the patient's medical care. Please read the chart carefully and recognize, using context, where these substitutions have occurred. Plan discussed with: Patient NYHA Physical activity limitations: NA Date of Service: Nov 04, 2024 Billing Provider: GINGER MCKEE Cardiology Common Codes: 12658-VSGWWCO INP/OBS CARE (High) Cardiology Consultation Codes: [id number] CONSULT <45MIN GINGER MCKEE Nov 04, 2024 10:35
[2024-11-04 11:11] LABS: Total Iron Binding Capacity 255.0 ug/dL (250-425)
[2024-11-04 11:14] LABS: Ferritin 73.1 ng/mL (10-291)
[2024-11-04 11:28] LABS: Nucleated Red Blood Cells % 0.1 %
[2024-11-04] MEDS: MAGNESIUM SULFATE 1GM/100ML 100 ML IV ONE (11:28)
[2024-11-04] MEDS: PANTOPRAZOLE 40 MG/10 ML VIAL INJ IV ONE (11:29)
[2024-11-04] MEDS: DIGOXIN (250MCG/ML) 2 ML AMPULE IV ONE (11:31)
[2024-11-04 11:36] LABS: Iron 10.0 ug/dL (50-170)
[2024-11-04 11:42] LABS: Total Cells Counted 100.0 (100)
[2024-11-04 11:43] LABS: Total Cells Counted 100.0 (100)
--- NOTE | 2024-11-04 11:48 | DVHPNRES ---
Progress Note Date Seen: Nov 04, 2024 Resident Creating Document: SHANIA PEREZ RESIDENT Medical Necessity Reason Pt with a Central, PICC or Fol: No Subjective Review of Systems This is a 74-year-old female with peptic ulcer disease, congestive heart failure-EF 40%, likely paroxysmal atrial fibrillation on dabigatran, who presented to the ER with a chief complaint of shortness of breaths and cough. Patient reported that she has been taking care of her who recently got COVID and was admitted at [facility], patient started to experience shortness of breaths, cough and was wheezing, she went to the [place] urgent care, but she became more sick, she was sleeping throughout the day, reports generalized fatigue, lower extremity edema and chills. Denies fever. Her COVID test was positive at the urgent Care, she was prescribed something but she was too sick to get it from the pharmacy. Denies any constipation/diarrhea/abdominal pain/urinary symptoms at this time. On arrival to the ER, patient was tachycardic with pulse ranging from 120 to 140s, irregular, she was in AFib with RVR, IV amiodarone was started on digoxin push was given. Past medical history:peptic ulcer disease, congestive heart failure-EF 40%, likely paroxysmal atrial fibrillation on dabigatran Home medications: Lisinopril, dabigatran, Lasix 40 mg p.o. daily PCP: Follows [place] Social history: Quit drinking 2 years back, was a social drinker, nonsmoker for lifetime, secondhand smoker - smokes, no drugs. Lives with Patient seen and examined in 263. His bibasilar crackles. No wheezing at this time. On remdesivir, ceftriaxone, doxy, Lasix 20 IV, Oxymizer. Objective vital signs Vital Sign Date Time Temp Pulse Resp B/P (MAP) Pulse Ox O2 Delivery O2 Flow Rate FiO2 11/04/24 11:31 113 11/04/24 11:29 95/64 11/04/24 07:31 29 97 11/04/24 06:00 Oxymizer 10 N/A 11/04/24 03:00 97.5 97.5 Total Intake and Output 11/03/24 11/03/24 11/04/24 15:00 23:00 07:00 Intake Total 99.96 ml 563.85 ml 299.96 ml Output Total 1600 ml Balance 99.96 ml 563.85 ml -1300.04 ml medications Current Medications Medications Dose Ordered Sig/Juan Route Start Time Stop Time Status Last Admin Dose Admin Amiodarone HCL/ Dextrose 200 ml @ 16.66 mls/ hr Q12H IV 11/03/24 03:00 11/04/24 07:21 16.66 MLS/HR Norepinephrine Bitartrate 250 ml @ 3.75 mls/hr Q24H IV 11/03/24 00:30 Ceftriaxone Sodium 50 ml @ 100 mls/hr DAILY@09 IV 11/04/24 09:00 11/04/24 09:33 100 MLS/HR Ondansetron HCl 4 mg Q4HP PRN IV 11/03/24 11:00 Acetaminophen 650 mg Q6HP PRN PO 11/03/24 11:00 Remdesivir 0 ml @ 0 mls/hr PER PHARMACY IV 11/03/24 12:45 11/07/24 12:46 Patient Own Medication 1 tab BID PO 11/03/24 22:00 UNV Patient Own Medication 1 tab DAILY PO 11/04/24 10:00 UNV Albuterol 180 mcg TID PRN IN 11/03/24 14:15 11/04/24 07:46 180 MCG Doxycycline Hyclate 100 ml @ 100 mls/hr BID IV 11/03/24 22:00 11/04/24 10:07 100 MLS/HR Lisinopril 10 mg DAILY PO 11/04/24 10:00 Hold Remdesivir 100 mg/ Sodium Chloride 250 ml @ 250 mls/hr DAILY@1500 IV 11/04/24 15:00 11/07/24 15:59 Furosemide 20 mg DAILY IV 11/05/24 10:00 Dexamethasone Sodium Phosphate 6 mg DAILY IV 11/05/24 10:00 Pantoprazole Sodium 40 mg DAILY IV 11/05/24 10:00 Examination Elderly female patient lying in the bed, mild distress, on Oxymizer 8 L from 16 L. General: Frail, afebrile, palor, mucosae are moist Cardiovascular: Tachycardic and irregular, S1 and S2. No murmurs, gallops or rubs. No JVD elevation. 1+ pedal edema bilaterally Respiratory: Bibasilar crackles heard on auscultation bilaterally Abdomen: Soft, nontender, nondistended, normoactive bowel sounds, no rebound tenderness, no organomegaly, no masses Genitourinary: Deferred MSK/skin: Mobilizes 4 limbs. Skin is dry and warm Neurological: No motor, no sensitive deficits, normal speech. Pupils are isocoric and reactive. Psych/Mental Status: A/Ox3 laboratory and microbiology Laboratory Tests 11/04/24 07:00 Test 11/04/24 07:00 Range/Units Serum Glucose 157 H 74-106 mg/dL Microbiology Date/Time Source Procedure Growth Status 11/03/24 12:54 Urine - [place] Urine Culture - Preliminary Resulted 11/02/24 21:05 Blood Blood Culture - Preliminary NO GROWTH AFTER 24 HOURS OF INCUBATION. Resulted Labs and/or images reviewed: Labs reviewed by me, Image(s) reviewed by me Problem List/Assessment/Plan Problem List/Assessment/Plan Acute hypoxic respiratory failure Sepsis secondary to Acute superimposed bacterial pneumonia on COVID 19 infection COVID positive, influenza negative On Oxymizer 8 L IV doxy, IV ceftriaxone 11/03 IV remdesivir 11/03 for 5 days IV dexamethasone 6 mg daily starting 11/04 DuoNebs Respiratory culture pending Isolation precautions Acute on chronic congestive heart failure exacerbation-NYHA class 3 AFib with RVR-chads Vasc score 4, has bled 1 History of hypertension, currently normotensive NSTEMI type 1 versus type 2 History of DC cardioversion IV Lasix 20 mg daily IV amiodarone protocol Digoxin loading dose given by multimedia technician Cardio on board Holding dabigatran/Lovenox given thrombocytopenia Echocardiogram pending IV iron 1 dose for symptomatic anemia, low ferritin and low iron Anemia, likely normocytic Thrombocytopenia ? Likely dabigatran induced Peripheral smear, LDH, retic count, manual diff pending History of peptic ulcer disease Pantoprazole 40 mg IV daily Osteoporosis Calcium and vitamin-D supplementation on dischargekub Started cardiac diet DVT prophylaxis SCDs Patient unstable for transfer at this time Plan discussed with patient, son over phone in which all questions have been answered Goals of care discussed with patient, for more than 18 minutes, full code status. Critical care time spent more than 69 minutes, including patient care, chart review, and updating the family. Excluding any procedures Case discussed with Dr. Hickman Plan discussed with: Patient My Orders My Orders Orders - SHANIA PEREZ RESIDENT Procedure Category Date Status Time Erythrocyte LAB 11/04/24 In Process Sedimentation Rate 10:37 C-Reactive Protein LAB 11/04/24 In Process 10:37 Iron Panel LAB 11/04/24 In Process 10:37 Ferritin LAB 11/04/24 In Process 10:37 Vitamin D, 25-Hydroxy LAB 11/04/24 In Process 10:37 Vitamin B12 LAB 11/04/24 In Process 10:37 Chest Xray 1 View XY 11/04/24 Logged 10:37 Respiratory Culture DIANNE 11/04/24 Logged W/ Gs 10:37 Dexamethasone PHA 11/05/24 In Process Injection (Decadron 10:00 Strict I & O CAROL 11/04/24 In Process 10:37 Strict Aspiration CAROL 11/04/24 In Process Precautions 10:37 Maintain Fluid CAROL 11/04/24 In Process Restrictions 10:37 Pantoprazole PHA 11/05/24 In Process (Protonix) 10:00 Jones Stain Slide LAB 11/04/24 In Process 10:52 Lactate Dehydrogenase LAB 11/04/24 In Process 10:52 Reticulocyte Count LAB 11/04/24 In Process 10:52 Manual Differential LAB 11/04/24 In Process 10:52 Blood Alcohol LAB 11/04/24 In Process 10:52 2 Gm Sodium Diet DIET 11/04/24 Transmitted SHANIA Jacob RESIDENT Nov 04, 2024 11:48
[2024-11-04 12:24] LABS: Wright Stain Ready for Review
[2024-11-04] MEDS: MULTIPLE VITAMIN TAB PO ONE (13:45)
--- NOTE | 2024-11-04 14:28 | DVH ---
Exam: XY KUB ABDOMEN SINGLE VIEW Indication: Not passing gas, rule out obstruction, bowel burden Comparison: None Technique: 2 radiographic views of the abdomen. Findings: Nonspecific bowel-gas pattern. There is no definite evidence for pneumoperitoneum. No abnormal calcifications noted. Impression: Nonspecific bowel-gas pattern.
--- NOTE | 2024-11-04 14:50 | DVH ---
CHEST RADIOGRAPH Indication: covid pna f/u Technique: Single frontal view of the chest was obtained Comparison: XY CHEST PORTABLE on DOS: 11/02/24, XY CHEST PORTABLE on DOS: 09/19/22, XY CHEST PORTABLE o n DOS: 09/16/22 FINDINGS: Increased density is seen involving both lower lobes right greater than left. Heart size is mildly e nlarged. IMPRESSION: 1. Findings consistent with either mild congestive heart failure versus bilateral infiltrates.
[2024-11-04] MEDS: REMDESIVIR 100mg in NS 230mL (5 DAY REGIMEN) IV SCH (15:00)
[2024-11-04] MEDS: IRON SUCROSE COMPLEX 110 ML IV ONE (15:46)
[2024-11-05] VITALS (85 sets, daily range): BP systolic 101–137; BP diastolic 58–96; PULSE 85–149; RESP 13–29; TEMP 97.7–98; O2SAT 89–100
--- NOTE | 2024-11-05 02:06 | DVHSR ---
APPROVED REPORT EXAM: Two-dimensional and M-mode echocardiogram with Doppler and color Doppler. Blood Pressure: 96/63 mmHg INDICATION SOB RISK FACTORS Height: 5' 8", Weight: 150 DIMENSIONS LVDd4.5 (3.8-5.7cm)LA (2D)4.7 (1.9-4.0cm)Aortic Root3.7 (2.0-3.7cm) LVDs4.0 (2.5-4.0cm)LA (MM) (1.9-4.0cm)Aortic Cusp Exc1.7 (1.5-2.0cm) EF (%) 30.0 (55-70%)Rt. Atrium4.2 (1.9-4.0cm)Asc. Aorta cm IVSd1.0 (0.7-1.1cm)RV (D) (1.8-2.4cm) PWd1.1 (0.7-1.1cm) Mitral Valve MitralMitral Stenosis E wave1.20m/sMV Mean GR.mmHg E/A ratio0.02D MVAcm2 Aortic Valve Aortic ValveAortic Stenosis V10.80m/Rodrigo Mean GR.4mmHg V21.40m/Rodrigo Peak GR.8mmHg LVOT Diameter2.1 (1.8-2.4cm)Doppler AVA1.98cm2 Tricuspid Valve TR Velocity3.20m/s [id number] Other Information Quality : Rhythm : Atrial Fibrillation Conclusion REMARKABLY DILATED AND HYPOKINETIC ALL CARDIAC CHAMBERS LV EF IS ONLY 20% BY VISUAL IMPRESSION IT IS DILATED CARDIOMYOPATHY MODERATE DEGREE MR MODERATELY SEVERE PULMONARY HYPERTENSION RVSP IS 50 MM OF HG AND IS HIGH NO EFFUSION
[2024-11-05 06:21] LABS: Alanine Aminotransferase 24 U/L (7-40); Albumin 3.5 g/dL (3.2-4.8); Alkaline Phosphatase 49 U/L (46-116); Anion Gap 9 (5-15); BUN/Creatinine Ratio 26.2 (10.0-20.0); Carbon Dioxide 26 mmol/L (20-31); Chloride 106 mmol/L (98-107); Potassium 3.8 mmol/L (3.5-5.1); Sodium 141 mmol/L (136-145)
[2024-11-05 06:22] LABS: Bilirubin, Total 0.7 mg/dL (0.2-1.0)
[2024-11-05 06:30] LABS: Blood Urea Nitrogen 27 mg/dL (9-23); Calcium 8.4 mg/dL (8.7-10.4); Glucose 163 mg/dL (74-106); Total Protein 5.6 g/dL (5.7-8.2)
[2024-11-05 07:44] LABS: Hematocrit 31.6 % (36.0-46.0); Hemoglobin 10.6 g/dL (12.2-16.2); Mean Corpuscular Hemoglobin 27.0 pg (28.0-32.0); Mean Corpuscular Volume 80.9 fL (80.0-100.0); Nucleated Red Blood Cells % 0.1 %
[2024-11-05] MEDS: MULTIPLE VITAMIN TAB PO SCH (09:59)
[2024-11-05] MEDS: PANTOPRAZOLE 40 MG/10 ML VIAL INJ IV SCH (09:59)
[2024-11-05] MEDS: FUROSEMIDE 20 MG/2 ML VIAL IV SCH ×2 (10:00→22:22)
--- NOTE | 2024-11-05 11:18 | DVHPN2 ---
Subjective This is a 74-year-old female with peptic ulcer disease, congestive heart failure-EF 40%, likely paroxysmal atrial fibrillation on dabigatran, who presented to the ER with a chief complaint of shortness of breaths and cough. Patient reported that she has been taking care of her who recently got COVID and was admitted at [facility], patient started to experience shortness of breaths, cough and was wheezing, she went to the [place] urgent care, but she became more sick, she was sleeping throughout the day, reports generalized fatigue, lower extremity edema and chills. Denies fever. Her COVID test was positive at the urgent Care, she was prescribed something but she was too sick to get it from the pharmacy. Denies any constipation/diarrhea/abdominal pain/urinary symptoms at this time. On arrival to the ER, patient was tachycardic with pulse ranging from 120 to 140s, irregular, she was in AFib with RVR, IV amiodarone was started on digoxin push was given. Past medical history:peptic ulcer disease, congestive heart failure-EF 40%, likely paroxysmal atrial fibrillation on dabigatran Home medications: Lisinopril, dabigatran, Lasix 40 mg p.o. daily PCP: Follows [place] Social history: Quit drinking 2 years back, was a social drinker, nonsmoker for lifetime, secondhand smoker - smokes, no drugs. Lives with 8:29: Patient seen and examined in 263. His bibasilar crackles. No wheezing at this time. On remdesivir, ceftriaxone, doxy, Lasix 20 IV, Oxymizer. 11/05: Patient is on Oxymizer 10 L, feeling better breathing better no shortness on breath. Heart rate is in the 100s cardiology is onboard giving amnio, 1 dose of dex was given which heart rate to 80, for her prn inhaler we will change albuterol to Atrovent to avoid any tachycardia. Making good urine. Continuing Lasix. She has rales up to mid lungs, we will need to increase Lasix to 20 IV b.i.d.. Otherwise we will continue primary team's management. Reviewed: Care Plan Changes from previous H/P or p: No Changes General: Per HPI Respiratory: Shortness of breath Objective Vitals Vital Signs Date Time Temp Pulse Resp B/P (MAP) Pulse Ox O2 Delivery O2 Flow Rate FiO2 8/30/25 10:00 115/85 11/05/24 06:30 98 24 96 11/05/24 06:10 Oxymizer 9.0 11/05/24 06:10 N/A 11/05/24 04:00 97.7 97.7 Intake/Output Intake and Output 11/05/24 07:00 Intake Total 2043.18 ml Output Total 1175 ml Balance 868.18 ml Intake Oral 1300 ml IV Total 743.18 ml Output Urine Total 1175 ml Exam General: Frail, afebrile, palor, mucosae are moist Cardiovascular: Tachycardic and irregular, S1 and S2. No murmurs, gallops or rubs. No JVD elevation. 1+ pedal edema bilaterally Respiratory: Bibasilar crackles heard on auscultation bilaterally Abdomen: Soft, nontender, nondistended, normoactive bowel sounds, no rebound tenderness, no organomegaly, no masses Genitourinary: Deferred MSK/skin: Mobilizes 4 limbs. Skin is dry and warm Neurological: No motor, no sensitive deficits, normal speech. Pupils are isocoric and reactive. Psych/Mental Status: A/Ox3 Medications Current Medications Medications Dose Ordered Sig/Juan Route Start Time Stop Time Status Last Admin Dose Admin Amiodarone HCL/ Dextrose 200 ml @ 16.66 mls/ hr Q12H IV 11/03/24 03:00 11/05/24 07:10 16.66 MLS/HR Norepinephrine Bitartrate 250 ml @ 3.75 mls/hr Q24H IV 11/03/24 00:30 Hold Ceftriaxone Sodium 50 ml @ 100 mls/hr DAILY@09 IV 11/04/24 09:00 11/05/24 09:54 100 MLS/HR Ondansetron HCl 4 mg Q4HP PRN IV 11/03/24 11:00 Acetaminophen 650 mg Q6HP PRN PO 11/03/24 11:00 Remdesivir 0 ml @ 0 mls/hr PER PHARMACY IV 11/03/24 12:45 11/07/24 12:46 Patient Own Medication 1 tab BID PO 11/03/24 22:00 UNV Patient Own Medication 1 tab DAILY PO 11/04/24 10:00 UNV Albuterol 180 mcg TID PRN IN 11/03/24 14:15 11/04/24 19:03 180 MCG Doxycycline Hyclate 100 ml @ 100 mls/hr BID IV 11/03/24 22:00 11/05/24 09:58 100 MLS/HR Lisinopril 10 mg DAILY PO 11/04/24 10:00 Hold Remdesivir 100 mg/ Sodium Chloride 250 ml @ 250 mls/hr DAILY@1500 IV 11/04/24 15:00 11/07/24 15:59 Furosemide 20 mg DAILY IV 11/05/24 10:00 11/05/24 10:00 20 MG Dexamethasone Sodium Phosphate 6 mg DAILY IV 11/05/24 10:00 11/05/24 09:59 6 MG Pantoprazole Sodium 40 mg DAILY IV 11/05/24 10:00 11/05/24 09:59 40 MG Multivitamins 1 tab DAILY PO 11/05/24 10:00 11/05/24 09:59 1 TAB Metoprolol Tartrate 12.5 mg BID PO 11/05/24 22:00 Laboratory Results Laboratory Tests 11/05/24 05:39 Chemistry Test 11/05/24 05:39 Albumin 3.5 g/dL (3.2-4.8) Calcium Level 8.4 mg/dL (8.7-10.4) L Total Protein 5.6 g/dL (5.7-8.2) L LFT Test 11/05/24 05:39 Alanine Aminotransferase (ALT) 24 U/L (7-40) Alkaline Phosphatase 49 U/L (46-116) Aspartate Amino Transferase (AST) 32 U/L (13-40) Total Bilirubin 0.7 mg/dL (0.2-1.0) Urinalysis Test 11/03/24 12:34 Urine Color Light-orange (Yellow) Urine Clarity Ex.turbid (Clear) Urine pH 5.5 (5.0-9.0) Urine Specific [place] 1.024 (1.001-1.035) Urine Protein 1+ (Negative) H Urine Ketones Negative (Negative) Urine Blood 1+ /uL (Negative) H Urine Nitrite Negative (Negative) Urine Bilirubin Negative (Negative) Urine Urobilinogen Normal mg/dL (Negative) Urine Leukocyte Esterase Negative /uL (Negative) Urine RBC 15 /hpf (0 - 4) Urine Microscopic WBC 12 /HPF (0-5) H Urine Squamous Epithelial Cells None seen /hpf (<5) Urine Bacteria None seen /hpf (None Seen) Urine Mucus Few (None Seen) Urine Glucose Normal mg/dL (Normal) Microbiology Microbiology Date/Time Source Procedure Growth Status 11/03/24 22:20 Nose MRSA Screen - Final Complete 11/03/24 12:54 Urine - [place] Urine Culture - Preliminary Resulted 11/02/24 21:05 Blood Blood Culture - Preliminary NO GROWTH AFTER 48 HOURS OF INCUBATION. Resulted Labs and/or images reviewed: Labs reviewed by me, Image(s) reviewed by me Assessment/Plan Assessment/Plan Acute hypoxic respiratory failure Sepsis secondary to Acute superimposed bacterial pneumonia on COVID 19 infection COVID positive, influenza negative On Oxymizer 8 L IV doxy, IV ceftriaxone 11/03 IV remdesivir 11/03 for 5 days IV dexamethasone 6 mg daily starting 11/04 DuoNebs Respiratory culture pending Isolation precautions Acute on chronic congestive heart failure exacerbation-NYHA class 3 AFib with RVR-chads Vasc score 4, has bled 1 History of hypertension, currently normotensive NSTEMI type 1 versus type 2 History of DC cardioversion IV Lasix 20 mg daily IV amiodarone protocol Digoxin loading dose given by field operations manager Cardio on board Holding dabigatran/Lovenox given thrombocytopenia Echocardiogram pending IV iron 1 dose for symptomatic anemia, low ferritin and low iron Anemia, likely normocytic Thrombocytopenia ? Likely dabigatran induced Peripheral smear, LDH, retic count, manual diff pending History of peptic ulcer disease Pantoprazole 40 mg IV daily Osteoporosis Calcium and vitamin-D supplementation on discharge Started cardiac diet DVT prophylaxis SCDs Plan discussed with: Other Date of Service: Nov 05, 2024 Billing Provider: JOHANA VELEZ MD Common Visit Codes: [id number] CARE 30-74 MIN JOHANA VELEZ MD Nov 05, 2024 11:18
--- NOTE | 2024-11-05 11:55 | DVHPN2 ---
Consult Progress Note Objective vital signs Vital Sign Date Time Temp Pulse Resp B/P (MAP) Pulse Ox O2 Delivery O2 Flow Rate FiO2 11/05/24 10:00 115/85 11/05/24 06:30 98 24 96 11/05/24 06:10 Oxymizer 9.0 11/05/24 06:10 N/A 11/05/24 04:00 97.7 97.7 Total Intake and Output 11/04/24 11/04/24 11/05/24 15:00 23:00 07:00 Intake Total 683.28 ml 743.28 ml 616.62 ml Output Total 575 ml 600 ml Balance 683.28 ml 168.28 ml 16.62 ml medications Current Medications Medications Dose Ordered Sig/Juan Route Start Time Stop Time Status Last Admin Dose Admin Amiodarone HCL/ Dextrose 200 ml @ 16.66 mls/ hr Q12H IV 11/03/24 03:00 11/05/24 07:10 16.66 MLS/HR Norepinephrine Bitartrate 250 ml @ 3.75 mls/hr Q24H IV 11/03/24 00:30 Hold Ceftriaxone Sodium 50 ml @ 100 mls/hr DAILY@09 IV 11/04/24 09:00 11/05/24 09:54 100 MLS/HR Ondansetron HCl 4 mg Q4HP PRN IV 11/03/24 11:00 Acetaminophen 650 mg Q6HP PRN PO 11/03/24 11:00 Remdesivir 0 ml @ 0 mls/hr PER PHARMACY IV 11/03/24 12:45 11/07/24 12:46 Patient Own Medication 1 tab BID PO 11/03/24 22:00 UNV Patient Own Medication 1 tab DAILY PO 11/04/24 10:00 UNV Albuterol 180 mcg TID PRN IN 11/03/24 14:15 11/04/24 19:03 180 MCG Doxycycline Hyclate 100 ml @ 100 mls/hr BID IV 11/03/24 22:00 11/05/24 09:58 100 MLS/HR Lisinopril 10 mg DAILY PO 11/04/24 10:00 Hold Remdesivir 100 mg/ Sodium Chloride 250 ml @ 250 mls/hr DAILY@1500 IV 11/04/24 15:00 11/07/24 15:59 Furosemide 20 mg DAILY IV 11/05/24 10:00 11/05/24 10:00 20 MG Dexamethasone Sodium Phosphate 6 mg DAILY IV 11/05/24 10:00 11/05/24 09:59 6 MG Pantoprazole Sodium 40 mg DAILY IV 11/05/24 10:00 11/05/24 09:59 40 MG Multivitamins 1 tab DAILY PO 11/05/24 10:00 11/05/24 09:59 1 TAB Metoprolol Tartrate 12.5 mg BID PO 11/05/24 22:00 Examination: CVS:Abnormal (Telemetry consistent with Atrial Fibrillation at 103 bpm) laboratory and microbiology Laboratory Tests 11/05/24 05:39 Test 11/05/24 05:39 Range/Units Serum Glucose 163 H 74-106 mg/dL Problem List/Assessment/Plan Problem List/Assessment/Plan Atrial fibrillation with rapid ventricular response (takes dabigatran at home) Acute hypoxic respiratory failure secondary to COVID pneumonia NSTEMI type II secondary to above History of direct current cardioversion Rule out structural heart disease Thrombocytopenia Hypertension Osteoporosis Plan/Recommendation We will continue with the following plan/recommendations (Dr. Cooper): * Transthoracic echocardiogram to evaluate cardiac function * Diuresis as tolerated * [id number] VASc score: 4 points, HAS-BLED score: 1 point * Continue metoprolol, titrate as tolerated * Hold Lovenox given thrombocytopenia. SCDs in the meantime. Reinitiate NOAC prior to discharge with stable H&H and platelet count * PO Amiodarone. * Digoxin loading dose * GDMT as tolerated * Monitor and replete electrolytes as needed, keep potassium greater than four and magnesium greater than two * Close Cardiac surveillance Case Discussed with Dr Cooper. Amiodarone switched to PO 200 mg twice daily, continue x 1 month followed by 20 mg daily. Low dose metoprolol added, titrate as BP tolerates. ECHO reviweed and shows EF 20%, Dilated Cardiomyopathy. Continue GDMT as tolerated. Not a good candidate cardioversion due to unable to tolerate anticoagulation therapy at this time. Continue with rate control. Critical care, time spent: 40 minutes This medical document was created using an electronic medical record system with voice recognition software and computerized dictation system. Although this document has been carefully reviewed, there might still be some phonetic and typographical errors. Occasional wrong-word or ``sound-alike substitutions may have occurred due to the inherent limitations of voice recognition software. These areas are purely typographical due to imperfections of the software programs and do not reflect any compromise in the patient's medical care. Please read the chart carefully and recognize, using context, where these substitutions have occurred. Thank you for allowing me to participate in the management of this patient. The treatment plan was discussed with and agreed upon by patient/family including requesting consultants and ordering of imaging/procedures. Plan discussed with: Patient Date of Service: Nov 05, 2024 Billing Provider: NEFTALI DORADO Common Visit Codes: [id number] INP/OBS CARE(HIGH), [id number] CARE 30-74 MIN NEFTALI DORADO Nov 05, 2024 11:55
[2024-11-05] MEDS: METOPROLOL TARTRATE 25 MG TAB PO ONE (14:21)
[2024-11-05] MEDS: AMIODARONE HCL 200 MG TAB PO ONE (14:21)
[2024-11-05] MEDS: METOPROLOL TARTRATE 25 MG TAB PO SCH (22:23)
[2024-11-05] MEDS: AMIODARONE HCL 200 MG TAB PO SCH (22:23)
[2024-11-06] VITALS (45 sets, daily range): BP systolic 104–135; BP diastolic 67–97; PULSE 57–144; RESP 12–31; TEMP 97.6–98.9; O2SAT 86–100
[2024-11-06 05:35] LABS: Hematocrit 31.9 % (36.0-46.0); Hemoglobin 10.9 g/dL (12.2-16.2); Mean Corpuscular Hemoglobin 27.4 pg (28.0-32.0); Mean Corpuscular Volume 79.7 fL (80.0-100.0)
[2024-11-06 05:49] LABS: Chloride 106 mmol/L (98-107); Potassium 3.8 mmol/L (3.5-5.1); Sodium 142 mmol/L (136-145)
[2024-11-06 05:50] LABS: Anion Gap 8 (5-15); Carbon Dioxide 28 mmol/L (20-31)
[2024-11-06 05:55] LABS: BUN/Creatinine Ratio 28.9 (10.0-20.0)
[2024-11-06 06:00] LABS: Blood Urea Nitrogen 24 mg/dL (9-23); Calcium 8.6 mg/dL (8.7-10.4); Glucose 146 mg/dL (74-106)
[2024-11-06 07:58] LABS: Total Cells Counted 100.0 (100)
--- NOTE | 2024-11-06 09:44 | DVHPN2 ---
Consult Progress Note Subjective Patient reports: Feels better Objective vital signs Vital Sign Date Time Temp Pulse Resp B/P (MAP) Pulse Ox O2 Delivery O2 Flow Rate FiO2 11/06/24 09:15 107 21 122/83 (96) 96 11/06/24 08:00 Oxymizer 10 N/A 11/06/24 08:00 97.6 97.6 Total Intake and Output 11/05/24 11/05/24 11/06/24 15:00 23:00 07:00 Intake Total 233.30 ml 520 ml 600 ml Output Total 775 ml 900 ml Balance 233.30 ml -255 ml -300 ml medications Current Medications Medications Dose Ordered Sig/Juan Route Start Time Stop Time Status Last Admin Dose Admin Ceftriaxone Sodium 50 ml @ 100 mls/hr DAILY@09 IV 11/04/24 09:00 11/05/24 09:54 100 MLS/HR Ondansetron HCl 4 mg Q4HP PRN IV 11/03/24 11:00 Acetaminophen 650 mg Q6HP PRN PO 11/03/24 11:00 Remdesivir 0 ml @ 0 mls/hr PER PHARMACY IV 11/03/24 12:45 11/07/24 12:46 Patient Own Medication 1 tab BID PO 11/03/24 22:00 UNV Patient Own Medication 1 tab DAILY PO 11/04/24 10:00 UNV Albuterol 180 mcg TID PRN IN 11/03/24 14:15 11/04/24 19:03 180 MCG Doxycycline Hyclate 100 ml @ 100 mls/hr BID IV 11/03/24 22:00 11/05/24 22:22 100 MLS/HR Remdesivir 100 mg/ Sodium Chloride 250 ml @ 250 mls/hr DAILY@1500 IV 11/04/24 15:00 11/07/24 15:59 Dexamethasone Sodium Phosphate 6 mg DAILY IV 11/05/24 10:00 11/05/24 09:59 6 MG Pantoprazole Sodium 40 mg DAILY IV 11/05/24 10:00 11/05/24 09:59 40 MG Multivitamins 1 tab DAILY PO 11/05/24 10:00 11/05/24 09:59 1 TAB Amiodarone HCl 200 mg Q12HR PO 11/05/24 22:00 11/05/24 22:23 200 MG Furosemide 20 mg BID IV 11/05/24 22:00 11/05/24 22:22 20 MG Lisinopril 5 mg DAILY PO 11/06/24 10:00 Metoprolol Tartrate 25 mg BID PO 11/06/24 10:00 Examination: CVS:Abnormal (Telemetry consistent with Atrial fibrillation at 108 bpm.) laboratory and microbiology Laboratory Tests 11/06/24 05:06 Test 11/06/24 05:06 Range/Units Serum Glucose 146 H 74-106 mg/dL Problem List/Assessment/Plan Problem List/Assessment/Plan Atrial fibrillation with rapid ventricular response (takes dabigatran at home) Acute hypoxic respiratory failure secondary to COVID pneumonia NSTEMI type II secondary to above History of direct current cardioversion Rule out structural heart disease Thrombocytopenia Hypertension Osteoporosis Plan/Recommendation We will continue with the following plan/recommendations (Dr. Cooper): * Transthoracic echocardiogram to evaluate cardiac function * Diuresis as tolerated * [id number] VASc score: 4 points, HAS-BLED score: 1 point * Continue metoprolol, titrate as tolerated * Hold Lovenox given thrombocytopenia. SCDs in the meantime. Reinitiate NOAC prior to discharge with stable H&H and platelet count * PO Amiodarone. * Digoxin loading dose * GDMT as tolerated * Monitor and replete electrolytes as needed, keep potassium greater than four and magnesium greater than two * Close Cardiac surveillance Case Discussed with Dr Cooper. Continue Amiodarone PO 200 mg twice daily, continue x 1 month followed by 200 mg daily. Metoprolol increased to 25 mg po twice daily. ECHO reviewed and shows EF 20%, Dilated Cardiomyopathy. Continue GDMT as tolerated. Lisinopril decreased to 5 mg given marginal BP, Hold for SBP < 100. Not a good candidate cardioversion due to unable to tolerate anticoagulation therapy at this time. Continue with rate control. Critical care, time spent: 40 minutes This medical document was created using an electronic medical record system with voice recognition software and computerized dictation system. Although this document has been carefully reviewed, there might still be some phonetic and typographical errors. Occasional wrong-word or ``sound-alike substitutions may have occurred due to the inherent limitations of voice recognition software. These areas are purely typographical due to imperfections of the software programs and do not reflect any compromise in the patient's medical care. Please read the chart carefully and recognize, using context, where these substitutions have occurred. Thank you for allowing me to participate in the management of this patient. The treatment plan was discussed with and agreed upon by patient/family including requesting consultants and ordering of imaging/procedures. Plan discussed with: Patient Dietary Evaluation Review Comments: 1) Ensure high protein 240ml BID 2) Monitor PO intake, lab values, weight trend, and I/O Expected Outcomes/Goals: To meet >75% estimated needs Lab values to improve Fu 3-5 days Date of Service: Nov 06, 2024 Billing Provider: NEFTALI DORADO Common Visit Codes: [id number] INP/OBS CARE(HIGH), [id number] CARE 30-74 MIN NEFTALI DORADO Nov 06, 2024 09:44
[2024-11-06] MEDS: LISINOPRIL 5 MG TAB PO SCH (10:00)
[2024-11-06] MEDS: METOPROLOL TARTRATE 25 MG TAB PO SCH (10:46)
--- NOTE | 2024-11-06 10:50 | DVHPN2 ---
Subjective This is a 74-year-old female with peptic ulcer disease, congestive heart failure-EF 40%, likely paroxysmal atrial fibrillation on dabigatran, who presented to the ER with a chief complaint of shortness of breaths and cough. Patient reported that she has been taking care of her who recently got COVID and was admitted at [facility], patient started to experience shortness of breaths, cough and was wheezing, she went to the [place] urgent care, but she became more sick, she was sleeping throughout the day, reports generalized fatigue, lower extremity edema and chills. Denies fever. Her COVID test was positive at the urgent Care, she was prescribed something but she was too sick to get it from the pharmacy. Denies any constipation/diarrhea/abdominal pain/urinary symptoms at this time. On arrival to the ER, patient was tachycardic with pulse ranging from 120 to 140s, irregular, she was in AFib with RVR, IV amiodarone was started on digoxin push was given. Past medical history:peptic ulcer disease, congestive heart failure-EF 40%, likely paroxysmal atrial fibrillation on dabigatran Home medications: Lisinopril, dabigatran, Lasix 40 mg p.o. daily PCP: Follows [place] Social history: Quit drinking 2 years back, was a social drinker, nonsmoker for lifetime, secondhand smoker - smokes, no drugs. Lives with 8:29: Patient seen and examined in 263. His bibasilar crackles. No wheezing at this time. On remdesivir, ceftriaxone, doxy, Lasix 20 IV, Oxymizer. 11/05: Patient is on Oxymizer 10 L, feeling better breathing better no shortness on breath. Heart rate is in the 100s cardiology is onboard giving amnio, 1 dose of dex was given which heart rate to 80, for her prn inhaler we will change albuterol to Atrovent to avoid any tachycardia. Making good urine. Continuing Lasix. She has rales up to mid lungs, we will need to increase Lasix to 20 IV b.i.d.. Otherwise we will continue primary team's management. 11/06: Patient is coughing a lot, no viviane hemoptysis yet. Chest still sounds with a rales bilateral lower lobe rales. Continuing pneumonia treatment she is feeling mildly better. Urine output is not a lot. AFib HFrEF, cardiology is increasing metoprolol tartrate to 25 b.i.d.. We will add zinc and continue Lasix 20 IV b.i.d.. We will need x-ray today to evaluate if this is COVID versus HFrEF causing the rales. She remains on Oxymizer 10 L., saturating 96%. Reviewed: Care Plan Changes from previous H/P or p: No Changes General: Per HPI Respiratory: Shortness of breath Objective Vitals Vital Signs Date Time Temp Pulse Resp B/P (MAP) Pulse Ox O2 Delivery O2 Flow Rate FiO2 11/06/24 09:15 107 21 122/83 (96) 96 11/06/24 08:00 Oxymizer 10 N/A 11/06/24 08:00 97.6 97.6 Intake/Output Intake and Output 11/06/24 07:00 Intake Total 1353.30 ml Output Total 1675 ml Balance -321.70 ml Intake Oral 1020 ml IV Total 333.30 ml Output Urine Total 1675 ml # Bowel Movements 1 Exam General: Frail, afebrile, palor, mucosae are moist Cardiovascular: Tachycardic and irregular, S1 and S2. No murmurs, gallops or rubs. No JVD elevation. 1+ pedal edema bilaterally Respiratory: Bibasilar crackles heard on auscultation bilaterally Abdomen: Soft, nontender, nondistended, normoactive bowel sounds, no rebound tenderness, no organomegaly, no masses Genitourinary: Deferred MSK/skin: Mobilizes 4 limbs. Skin is dry and warm Neurological: No motor, no sensitive deficits, normal speech. Pupils are isocoric and reactive. Psych/Mental Status: A/Ox3 Medications Current Medications Medications Dose Ordered Sig/Juan Route Start Time Stop Time Status Last Admin Dose Admin Ceftriaxone Sodium 50 ml @ 100 mls/hr DAILY@09 IV 11/04/24 09:00 11/05/24 09:54 100 MLS/HR Ondansetron HCl 4 mg Q4HP PRN IV 11/03/24 11:00 Acetaminophen 650 mg Q6HP PRN PO 11/03/24 11:00 Remdesivir 0 ml @ 0 mls/hr PER PHARMACY IV 11/03/24 12:45 11/07/24 12:46 Patient Own Medication 1 tab BID PO 11/03/24 22:00 UNV Patient Own Medication 1 tab DAILY PO 11/04/24 10:00 UNV Albuterol 180 mcg TID PRN IN 11/03/24 14:15 11/04/24 19:03 180 MCG Doxycycline Hyclate 100 ml @ 100 mls/hr BID IV 11/03/24 22:00 11/05/24 22:22 100 MLS/HR Remdesivir 100 mg/ Sodium Chloride 250 ml @ 250 mls/hr DAILY@1500 IV 11/04/24 15:00 11/07/24 15:59 Dexamethasone Sodium Phosphate 6 mg DAILY IV 11/05/24 10:00 11/05/24 09:59 6 MG Pantoprazole Sodium 40 mg DAILY IV 11/05/24 10:00 11/05/24 09:59 40 MG Multivitamins 1 tab DAILY PO 11/05/24 10:00 11/05/24 09:59 1 TAB Amiodarone HCl 200 mg Q12HR PO 11/05/24 22:00 11/05/24 22:23 200 MG Furosemide 20 mg BID IV 11/05/24 22:00 11/05/24 22:22 20 MG Lisinopril 5 mg DAILY PO 11/06/24 10:00 Metoprolol Tartrate 25 mg BID PO 11/06/24 10:00 Zinc Sulfate 220 mg DAILY PO 11/07/24 10:00 UNV Laboratory Results Laboratory Tests 11/06/24 05:06 Chemistry Test 11/06/24 05:06 Calcium Level 8.6 mg/dL (8.7-10.4) L Urinalysis Test 11/03/24 12:34 Urine Color Light-orange (Yellow) Urine Clarity Ex.turbid (Clear) Urine pH 5.5 (5.0-9.0) Urine Specific [place] 1.024 (1.001-1.035) Urine Protein 1+ (Negative) H Urine Ketones Negative (Negative) Urine Blood 1+ /uL (Negative) H Urine Nitrite Negative (Negative) Urine Bilirubin Negative (Negative) Urine Urobilinogen Normal mg/dL (Negative) Urine Leukocyte Esterase Negative /uL (Negative) Urine RBC 15 /hpf (0 - 4) Urine Microscopic WBC 12 /HPF (0-5) H Urine Squamous Epithelial Cells None seen /hpf (<5) Urine Bacteria None seen /hpf (None Seen) Urine Mucus Few (None Seen) Urine Glucose Normal mg/dL (Normal) Microbiology Microbiology Date/Time Source Procedure Growth Status 11/03/24 22:20 Nose MRSA Screen - Final Complete 11/03/24 12:54 Urine - [place] Urine Culture - Final Complete 11/02/24 21:05 Blood Blood Culture - Preliminary NO GROWTH AFTER 72 HOURS OF INCUBATION. Resulted Labs and/or images reviewed: Labs reviewed by me, Image(s) reviewed by me Assessment/Plan Assessment/Plan Acute hypoxic respiratory failure Sepsis secondary to Acute superimposed bacterial pneumonia on COVID 19 infection COVID positive, influenza negative On Oxymizer 8 L IV doxy, IV ceftriaxone 11/03 IV remdesivir 11/03 for 5 days IV dexamethasone 6 mg daily starting 11/04 DuoNebs Respiratory culture pending Isolation precautions Acute on chronic congestive heart failure exacerbation-NYHA class 3 AFib with RVR-chads Vasc score 4, has bled 1 History of hypertension, currently normotensive NSTEMI type 1 versus type 2 History of DC cardioversion IV Lasix 20 mg daily IV amiodarone protocol Digoxin loading dose given by armature inspector Cardio on board Holding dabigatran/Lovenox given thrombocytopenia Echocardiogram pending IV iron 1 dose for symptomatic anemia, low ferritin and low iron Anemia, likely normocytic Thrombocytopenia ? Likely dabigatran induced Peripheral smear, LDH, retic count, manual diff pending History of peptic ulcer disease Pantoprazole 40 mg IV daily Osteoporosis Calcium and vitamin-D supplementation on discharge Started cardiac diet DVT prophylaxis SCDs Plan discussed with: Other My Orders Orders - JOHANA VELEZ MD Procedure Category Date Status Time Furosemide Injection PHA 11/05/24 In Process (Lasix Injection) 22:00 Zinc Sulfate PHA 11/07/24 Logged 10:00 Zinc Sulfate PHA 11/06/24 Logged 10:45 Chest Portable XY 11/06/24 Logged 10:38 Date of Service: Nov 06, 2024 Billing Provider: JOHANA VELEZ MD Common Visit Codes: [id number] CARE 30-74 MIN JOHANA VELEZ MD Nov 06, 2024 10:50
[2024-11-06] MEDS: ZINC SULFATE 220mg CAP or TAB PO ONE (10:57)
--- NOTE | 2024-11-06 13:27 | DVH ---
EXAM: XY CHEST PORTABLE HISTORY: shortness of breath TECHNIQUE: 1 view of the chest COMPARISON: XY CHEST XRAY 1 VIEW on DOS: 11/04/24 FINDINGS/IMPRESSION: LUNGS: Improved aeration in bilateral lower lobes however persistent bibasilar opacities with possibl e peripheral interstitial edema MEDIASTINUM: Unremarkable BONES: No acute osseous abnormality OTHER: None
[2024-11-07] VITALS (22 sets, daily range): BP systolic 104–134; BP diastolic 47–88; PULSE 92–118; RESP 16–29; TEMP 37.1; O2SAT 91–98
[2024-11-07 06:25] LABS: Chloride 103 mmol/L (98-107); Potassium 3.8 mmol/L (3.5-5.1); Sodium 142 mmol/L (136-145)
[2024-11-07 06:27] LABS: Anion Gap 7 (5-15)
[2024-11-07 06:28] LABS: Calcium 8.5 mg/dL (8.7-10.4); Carbon Dioxide 32 mmol/L (20-31)
[2024-11-07 06:32] LABS: BUN/Creatinine Ratio 31.1 (10.0-20.0)
[2024-11-07 06:34] LABS: Hemoglobin 10.7 g/dL (12.2-16.2)
[2024-11-07 06:36] LABS: Blood Urea Nitrogen 23 mg/dL (9-23); Glucose 136 mg/dL (74-106)
[2024-11-07 06:37] LABS: Hematocrit 31.4 % (36.0-46.0); Mean Corpuscular Hemoglobin 27.4 pg (28.0-32.0); Mean Corpuscular Volume 80.1 fL (80.0-100.0)
[2024-11-07] MEDS: ACETAMINOPHEN 325 MG TAB PO PRN (07:55)
[2024-11-07] MEDS: ZINC SULFATE 220mg CAP or TAB PO SCH (07:56)
[2024-11-07 09:10] LABS: Smudge Cells 1 /100 WBC; Total Cells Counted 100.0 (100)
[2024-11-07] MEDS ORDERED: REMDESIVIR PER PHARMACY 0 ML IV SCH (10:15)
[2024-11-07 12:28] LABS: Alanine Aminotransferase 26 U/L (7-40); Albumin 3.4 g/dL (3.2-4.8); Alkaline Phosphatase 50 U/L (46-116); Anion Gap 8 (5-15); BUN/Creatinine Ratio 30.0 (10.0-20.0); Bilirubin, Total 0.8 mg/dL (0.2-1.0); Chloride 102 mmol/L (98-107); Potassium 3.6 mmol/L (3.5-5.1); Sodium 142 mmol/L (136-145)
[2024-11-07 12:30] LABS: Blood Urea Nitrogen 24 mg/dL (9-23); Calcium 8.2 mg/dL (8.7-10.4); Carbon Dioxide 32 mmol/L (20-31); Glucose 205 mg/dL (74-106); Total Protein 5.5 g/dL (5.7-8.2)
--- NOTE | 2024-11-07 13:17 | DVHPN2 ---
Consult Progress Note Date Seen: Nov 07, 2024 Subjective Other Systems: No overnight cardiac events reported Objective vital signs Vital Sign Date Time Temp Pulse Resp B/P (MAP) Pulse Ox O2 Delivery O2 Flow Rate FiO2 11/07/24 12:00 99.2 95 16 104/66 (79) 94 99.2 11/07/24 11:50 Oxymizer 7 N/A Total Intake and Output 11/06/24 11/06/24 11/07/24 15:00 23:00 07:00 Intake Total 150 ml 870 ml 500 ml Output Total 1100 ml 1200 ml Balance 150 ml -230 ml -700 ml medications Current Medications Medications Dose Ordered Sig/Juan Route Start Time Stop Time Status Last Admin Dose Admin Ceftriaxone Sodium 50 ml @ 100 mls/hr DAILY@09 IV 11/04/24 09:00 11/07/24 08:11 100 MLS/HR Ondansetron HCl 4 mg Q4HP PRN IV 11/03/24 11:00 Acetaminophen 650 mg Q6HP PRN PO 11/03/24 11:00 11/07/24 07:55 650 MG Patient Own Medication 1 tab BID PO 11/03/24 22:00 UNV Patient Own Medication 1 tab DAILY PO 11/04/24 10:00 UNV Albuterol 180 mcg TID PRN IN 11/03/24 14:15 11/06/24 13:56 180 MCG Doxycycline Hyclate 100 ml @ 100 mls/hr BID IV 11/03/24 22:00 11/07/24 08:11 100 MLS/HR Dexamethasone Sodium Phosphate 6 mg DAILY IV 11/05/24 10:00 11/07/24 07:56 6 MG Pantoprazole Sodium 40 mg DAILY IV 11/05/24 10:00 11/07/24 07:55 40 MG Multivitamins 1 tab DAILY PO 11/05/24 10:00 11/07/24 07:56 1 TAB Amiodarone HCl 200 mg Q12HR PO 11/05/24 22:00 11/06/24 21:10 200 MG Furosemide 20 mg BID IV 11/05/24 22:00 11/07/24 07:55 20 MG Lisinopril 5 mg DAILY PO 11/06/24 10:00 11/07/24 08:15 5 MG Metoprolol Tartrate 25 mg BID PO 11/06/24 10:00 11/07/24 08:15 25 MG Zinc Sulfate 220 mg DAILY PO 11/07/24 10:00 11/07/24 07:56 220 MG Guaifenesin 200 mg Q6HP PO 11/07/24 12:00 11/07/24 10:30 200 MG Remdesivir 0 ml @ 0 mls/hr PER PHARMACY IV 11/07/24 10:15 11/11/24 10:16 Enoxaparin Sodium 70 mg Q12HR SC 11/07/24 22:00 Future Hold Remdesivir 100 mg/ Sodium Chloride 250 ml @ 250 mls/hr DAILY@1500 IV 11/08/24 15:00 11/11/24 15:59 Examination: GENERAL:Abnormal, LUNGS:Abnormal (Coarse. On O2 via oxymizer), CVS:Normal (A-fib low 100s bpm), NEURO:Normal laboratory and microbiology Laboratory Tests 11/07/24 11:50 11/07/24 02:50 Test 11/07/24 11:50 Range/Units Serum Glucose 205 H 74-106 mg/dL Problem List/Assessment/Plan Problem List/Assessment/Plan Acute on chronic decompensated HFrEF, NYHA Class III Atrial fibrillation with rapid ventricular response, controlled rate (on dabigatran) Acute hypoxic respiratory failure secondary to COVID pneumonia Dilated cardiomyopathy, ?ischemic NSTEMI type II secondary to above Pulmonary hypertension, moderate degree History of direct current cardioversion Thrombocytopenia Hypertension Osteoporosis Plan/Recommendation (Dr. Cooper) * Transthoracic echocardiogram revealed LVEF 20%. RVSP 50 mmHg * Remarkable dilated cardiomyopathy and hypokinetic * Initiate GDMT for HFrEF and up-titrate as tolerated * Preload and afterload reduction as tolerated * Strict I&Os. Daily weight. Fluid restrictions * Rate control, metoprolol and digoxin therapy * Antiarrhythmic therapy, amiodarone BID (refusing) * Hold DOAC/AC therapy given thrombocytopenia * [id number] VASc score: 4 points, HAS-BLED score: 1 point * Replete electrolytes as needed, K>2 and Mg>2 * Close Cardiac surveillance * VTE/DVT prophylaxis: SCDs Denies any coronary ischemic work-up in the past. Strongly recommended for a coronary angiogram with cardiac catheterization once she recovers from acute respiratory decompensation. States primary manager water is at [facility]. Thank you for allowing me to participate in the management of this patient. Critical care, time spent: 30 minutes. This medical document was created using an electronic medical record system with voice recognition software and computerized dictation system. Although this document has been carefully reviewed, there might still be some phonetic and typographical errors. Occasional wrong-word or ``sound-alike substitutions may have occurred due to the inherent limitations of voice recognition software. These areas are purely typographical due to imperfections of the software programs and do not reflect any compromise in the patient's medical care. Please read the chart carefully and recognize, using context, where these substitutions have occurred. Plan discussed with: Patient, Other Dietary Evaluation Review Comments: 1) Ensure high protein 240ml BID 2) Monitor PO intake, lab values, weight trend, and I/O Expected Outcomes/Goals: To meet >75% estimated needs Lab values to improve Fu 3-5 days Date of Service: Nov 07, 2024 Billing Provider: LAURO LAMBERT Cardiology Common Codes: 27001-KGEWCANF CARE 30-74 MIN LAURO LAMBERT Nov 07, 2024 13:17
[2024-11-07] MEDS: DIGOXIN 0.125 MG TAB PO ONE (13:28)
[2024-11-07] MEDS: MAGNESIUM SULFATE 1GM/100ML 100 ML IV ONE (13:28)
[2024-11-07] MEDS: POTASSIUM CHL 20 Meq TABLET PO ONE (13:28)
[2024-11-07 13:41] LABS: COVID19 ANTIGEN SOFIA FIA NEGATIVE (NEGATIVE)
--- NOTE | 2024-11-07 14:48 | DVHPNRES ---
Progress Note Date Seen: Nov 07, 2024 Resident Creating Document: SHANIA PEREZ RESIDENT Medical Necessity Reason Pt with a Central, PICC or Fol: No Subjective Review of Systems This is a 74-year-old female with peptic ulcer disease, congestive heart failure-EF 40%, likely paroxysmal atrial fibrillation on dabigatran, who presented to the ER with a chief complaint of shortness of breaths and cough. Patient reported that she has been taking care of her who recently got COVID and was admitted at [facility], patient started to experience shortness of breaths, cough and was wheezing, she went to the [place] urgent care, but she became more sick, she was sleeping throughout the day, reports generalized fatigue, lower extremity edema and chills. Denies fever. Her COVID test was positive at the urgent Care, she was prescribed something but she was too sick to get it from the pharmacy. Denies any constipation/diarrhea/abdominal pain/urinary symptoms at this time. On arrival to the ER, patient was tachycardic with pulse ranging from 120 to 140s, irregular, she was in AFib with RVR, IV amiodarone was started on digoxin push was given. Past medical history:peptic ulcer disease, congestive heart failure-EF 40%, likely paroxysmal atrial fibrillation on dabigatran Home medications: Lisinopril, dabigatran, Lasix 40 mg p.o. daily PCP: Follows [place] Social history: Quit drinking 2 years back, was a social drinker, nonsmoker for lifetime, secondhand smoker - smokes, no drugs. Lives with 11/04 Patient seen and examined in 263. His bibasilar crackles. No wheezing at this time. On remdesivir, ceftriaxone, doxy, Lasix 20 IV, Oxymizer. 11/07 - Patient on 6L oxymizer, refusing remdesivir - counseled and pt agreed Objective vital signs Vital Sign Date Time Temp Pulse Resp B/P (MAP) Pulse Ox O2 Delivery O2 Flow Rate FiO2 11/07/24 14:10 20 93 Oxymizer 7 N/A 11/07/24 14:10 105 11/07/24 13:00 106/73 (84) 11/07/24 12:00 99.2 99.2 Total Intake and Output 11/06/24 11/06/24 11/07/24 15:00 23:00 07:00 Intake Total 150 ml 870 ml 500 ml Output Total 1100 ml 1200 ml Balance 150 ml -230 ml -700 ml medications Current Medications Medications Dose Ordered Sig/Juan Route Start Time Stop Time Status Last Admin Dose Admin Ceftriaxone Sodium 50 ml @ 100 mls/hr DAILY@09 IV 11/04/24 09:00 11/07/24 08:11 100 MLS/HR Ondansetron HCl 4 mg Q4HP PRN IV 11/03/24 11:00 Acetaminophen 650 mg Q6HP PRN PO 11/03/24 11:00 11/07/24 07:55 650 MG Patient Own Medication 1 tab BID PO 11/03/24 22:00 UNV Patient Own Medication 1 tab DAILY PO 11/04/24 10:00 UNV Albuterol 180 mcg TID PRN IN 11/03/24 14:15 11/06/24 13:56 180 MCG Doxycycline Hyclate 100 ml @ 100 mls/hr BID IV 11/03/24 22:00 11/07/24 08:11 100 MLS/HR Dexamethasone Sodium Phosphate 6 mg DAILY IV 11/05/24 10:00 11/07/24 07:56 6 MG Pantoprazole Sodium 40 mg DAILY IV 11/05/24 10:00 11/07/24 07:55 40 MG Multivitamins 1 tab DAILY PO 11/05/24 10:00 11/07/24 07:56 1 TAB Amiodarone HCl 200 mg Q12HR PO 11/05/24 22:00 11/06/24 21:10 200 MG Lisinopril 5 mg DAILY PO 11/06/24 10:00 11/07/24 08:15 5 MG Metoprolol Tartrate 25 mg BID PO 11/06/24 10:00 11/07/24 08:15 25 MG Zinc Sulfate 220 mg DAILY PO 11/07/24 10:00 11/07/24 07:56 220 MG Guaifenesin 200 mg Q6HP PO 11/07/24 12:00 11/07/24 10:30 200 MG Remdesivir 0 ml @ 0 mls/hr PER PHARMACY IV 11/07/24 10:15 11/11/24 10:16 Remdesivir 100 mg/ Sodium Chloride 250 ml @ 250 mls/hr DAILY@1500 IV 11/08/24 15:00 11/11/24 15:59 Furosemide 40 mg BIDD IV 11/07/24 18:00 Digoxin 0.125 mg DAILY PO 11/08/24 10:00 Empaglifozin 10 mg DAILY PO 11/08/24 10:00 Spironolactone 12.5 mg DAILY PO 11/08/24 10:00 Examination Elderly female patient lying in the bed, mild distress, on Oxymizer 6 L from 16 L. General: Frail, afebrile, palor, mucosae are moist Cardiovascular: Tachycardic and irregular, S1 and S2. No murmurs, gallops or rubs. No JVD elevation. 1+ pedal edema bilaterally Respiratory: Bibasilar crackles heard on auscultation bilaterally Abdomen: Soft, nontender, nondistended, normoactive bowel sounds, no rebound tenderness, no organomegaly, no masses Genitourinary: Deferred MSK/skin: Mobilizes 4 limbs. Skin is dry and warm Neurological: No motor, no sensitive deficits, normal speech. Pupils are isocoric and reactive. Psych/Mental Status: A/Ox3 laboratory and microbiology Laboratory Tests 11/07/24 11:50 11/07/24 02:50 Test 11/07/24 11:50 Range/Units Serum Glucose 205 H 74-106 mg/dL Microbiology Date/Time Source Procedure Growth Status 11/03/24 22:20 Nose MRSA Screen - Final Complete 11/03/24 12:54 Urine - [place] Urine Culture - Final Complete 11/02/24 21:05 Blood Blood Culture - Preliminary NO GROWTH AFTER 72 HOURS OF INCUBATION. Resulted Labs and/or images reviewed: Labs reviewed by me, Image(s) reviewed by me Problem List/Assessment/Plan Problem List/Assessment/Plan Acute hypoxic respiratory failure Sepsis secondary to Acute superimposed bacterial pneumonia on COVID 19 infection COVID positive, influenza negative On Oxymizer 8 L IV doxy, IV ceftriaxone 11/03 IV remdesivir 11/03 for 5 days - pt refused, started 11/07 IV dexamethasone 6 mg daily starting 11/04 DuoNebs Respiratory culture pending Isolation precautions Acute on chronic systolic congestive heart failure exacerbation-NYHA class 3 AFib with RVR-chads Vasc score 4, has bled 1 History of hypertension, currently normotensive NSTEMI type 1 versus type 2 History of DC cardioversion IV Lasix 20 mg daily IV amiodarone protocol, now po Digoxin loading dose given by cut roll machine operator Cardio on board - dat glover and sprionolactone 11/07 Resumed Lovenox therpeutic given improving thrombocytopenia Echocardiogram: REMARKABLY DILATED AND HYPOKINETIC ALL CARDIAC CHAMBERS, LV EF IS ONLY 20% BY VISUAL IMPRESSION,MODERATELY SEVERE PULMONARY HYPERTENSION, RVSP IS 50 MM OF HG AND IS HIGH IV iron 1 dose for symptomatic anemia, low ferritin and low iron Anemia, likely normocytic Thrombocytopenia ? Likely dabigatran induced Peripheral smear, LDH 316, retic count 0.8 ANDREW likely VMN Resolved History of peptic ulcer disease Pantoprazole 40 mg IV daily Osteoporosis Calcium and vitamin-D supplementation on discharge cardiac diet Patient satble for transfer at this time Plan discussed with patient, son over phone in which all questions have been answered Goals of care discussed with patient, for more than 18 minutes, full code status. Critical care time spent more than 69 minutes, including patient care, chart review, and updating the family. Excluding any procedures Case discussed with Dr. Hickman Plan discussed with: Patient My Orders My Orders Orders - SHANIA PEREZ Procedure Category Date Status Time * Wellness Educator CONS 11/07/24 Transmitted Consult Guaifenesin Plain PHA 11/07/24 In Process Liquid (Robitussin Farrah 12:00 Remdesivir Per PHA 11/07/24 In Process Pharmacy 10:15 Remdesivir 100mg PHA 11/08/24 In Process ([facility]) 15:00 Transfer Orders XFER 11/07/24 Transmitted 11:51 Dietary Evaluation Review Comments: 1) Ensure high protein 240ml BID 2) Monitor PO intake, lab values, weight trend, and I/O Expected Outcomes/Goals: To meet >75% estimated needs Lab values to improve Fu 3-5 days SHANIA PEREZ RESIDENT Nov 07, 2024 14:48
--- NOTE | 2024-11-07 14:59 | DVHDSRES ---
Discharge Summary Date of Admission Resident Creating Document: SHANIA PEREZ RESIDENT Nov 03, 2024 at 10:50 Date of Discharge: Nov 07, 2024 Labs/Diagnostic Data: Laboratory Results Test 11/07/24 11:50 11/07/24 10:12 11/07/24 02:50 11/06/24 05:06 Sodium Level 142 mmol/L (136-145) Potassium Level 3.6 mmol/L (3.5-5.1) Chloride Level 102 mmol/L (98-107) Carbon Dioxide Level 32 mmol/L (20-31) Anion Gap 8 (5-15) Blood Urea Nitrogen 24 mg/dL (9-23) Creatinine 0.80 mg/dL (0.550-1.02) Glomerular Filtration Rate Calc 77 mL/min (>90) BUN/Creatinine Ratio 30.0 (10.0-20.0) Serum Glucose 205 mg/dL (74-106) Calcium Level 8.2 mg/dL (8.7-10.4) Total Bilirubin 0.8 mg/dL (0.2-1.0) Aspartate Amino Transferase (AST) 29 U/L (13-40) Alanine Aminotransferase (ALT) 26 U/L (7-40) Alkaline Phosphatase 50 U/L (46-116) Total Protein 5.5 g/dL (5.7-8.2) Albumin 3.4 g/dL (3.2-4.8) SARS-CoV-2 Antigen (Rapid) Negative (NEGATIVE) White Blood Count 11.9 10^3/uL (4.4-10.8) Red Blood Count 3.92 10^6/uL (4.0-5.20) Hemoglobin 10.7 g/dL (12.2-16.2) Hematocrit 31.4 % (36.0-46.0) Mean Corpuscular Volume 80.1 fL (80.0-100.0) Mean Corpuscular Hemoglobin 27.4 pg (28.0-32.0) Mean Corpuscular Hemoglobin Concent 34.2 g/dL (32.0-36.0) Red Cell Distribution Width 19.0 % (11.8-14.3) Platelet Count 81 10^3/uL (140-450) Mean Platelet Volume 9.1 fL (6.9-10.8) Neutrophils (%) (Auto) % (37.0-80.0) Lymphocytes (%) (Auto) % (10.0-50.0) Monocytes (%) (Auto) % (0.0-12.0) Basophils (%) (Auto) % (0.0-2.0) Neutrophils # (Auto) 10 ^3/uL (1.6-8.6) Lymphocytes # (Auto) 10 ^3/uL (0.4-5.4) Monocytes # (Auto) 10 ^3/uL (0-1.3) Differential Total Cells Counted 100.0 (100) Neutrophils % (Manual) 79 (37.0-80.0) Band Neutrophils % (Manual) 1 Lymphocytes % (Manual) 11 (10.0-50.0) Monocytes % (Manual) 9 (0-12) Eosinophils % (Manual) 0 (0-7) Basophils % (Manual) 0 (0.0-2.0) Metamyelocytes % (manual) 0 Myelocytes % (Manual) 0 Promyelocytes % (Manual) 0 Blast Cells % (Manual) 0 Reactive Lymphocytes 0 Smudge Cells 1 /100 WBC Platelet Estimate Decreased B-Type Natriuretic Peptide 753.92 pg/mL (0-100) Eosinophils (%) (Auto) % (0.0-7.0) Eosinophils # (Auto) 10 ^3/uL (0-0.8) Basophils # (Auto) 10 ^3/uL (0-0.2) Nucleated Red Blood Cells % Microcytosis Slight Test 11/04/24 10:09 11/04/24 07:00 11/03/24 13:11 11/03/24 12:34 Lactic Acid Level 1.6 mmol/L (0.4-2.0) Iron Level 10 ug/dL (50-170) Total Iron Binding Capacity 255 ug/dL (250-425) Percent Iron Saturation 3.9 % (15-50) Ferritin 73.1 ng/mL (10-291) Vitamin B12 Level 1993 pg/mL (211-911) Vitamin D 25-Hydroxy 39.0 ng/mL (30.0-100) Erythrocyte Sedimentation Rate 12 mm/hr (0-20) Reticulocyte Count (auto) 0.85 % (0.5-1.5) Hemoglobin A1c 5.3 % A1C (<5.7) Magnesium Level 2.0 mg/dL (1.6-2.6) Lactate Dehydrogenase 316 U/L (120-246) C-Reactive Protein High Sensitivity 11.17 mg/dL (<1.0) Triglycerides Level 63 mg/dL (< 150) Cholesterol Level 79 mg/dL (< 200) LDL Cholesterol 34 mg/dL (< 100) HDL Cholesterol 28 mg/dL (40-59) Thyroid Stimulating Hormone (TSH) 1.20 uIU/mL (0.55-4.78) Plasma/Serum Blood Alcohol < 3.0 mg/dL (<10) D-Dimer, Quantitative 0.49 mg/L FEU (0.0-0.49) Urine Color Light-orange (Yellow) Urine Clarity Ex.turbid (Clear) Urine pH 5.5 (5.0-9.0) Urine Specific Terry 1.024 (1.001-1.035) Urine Protein 1+ (Negative) Urine Ketones Negative (Negative) Urine Blood 1+ /uL (Negative) Urine Nitrite Negative (Negative) Urine Bilirubin Negative (Negative) Urine Urobilinogen Normal mg/dL (Negative) Urine Leukocyte Esterase Negative /uL (Negative) Urine RBC 15 /hpf (0 - 4) Urine Microscopic WBC 12 /HPF (0-5) Urine Squamous Epithelial Cells None seen /hpf (<5) Urine Bacteria None seen /hpf (None Seen) Urine Mucus Few (None Seen) Urine Glucose Normal mg/dL (Normal) Test 11/03/24 06:31 11/02/24 23:03 11/02/24 21:00 Troponin I High Sensitivity 222 ng/L (</=34) Influenza Type A Antigen Negative (Negative) Influenza Type B Antigen Negative (Negative) Anisocytosis (manual) Slight Tanya Cells Few Prothrombin Time 13.0 sec (9.3-11.8) Prothrombin Time INR 1.25 (0.9-1.15) Activated Partial Thromboplast Time 43.2 SEC (24.5-34.5) Other Laboratory Tests 11/07/24 11:50 11/07/24 02:50 Brief Hx & Hospital Course: This is a 74-year-old female with peptic ulcer disease, congestive heart failure-EF 40%, likely paroxysmal atrial fibrillation on dabigatran, who presented to the ER with a chief complaint of shortness of breaths and cough. Patient reported that she has been taking care of her who recently got COVID and was admitted at [facility], patient started to experience shortness of breaths, cough and was wheezing, she went to the [place] urgent care, but she became more sick, she was sleeping throughout the day, reports generalized fatigue, lower extremity edema and chills. Denies fever. Her COVID test was positive at the urgent Care, she was prescribed something but she was too sick to get it from the pharmacy. Denies any constipation/diarrhea/abdominal pain/urinary symptoms at this time. On arrival to the ER, patient was tachycardic with pulse ranging from 120 to 140s, irregular, she was in AFib with RVR, IV amiodarone was started on digoxin push was given. Past medical history:peptic ulcer disease, congestive heart failure-EF 40%, likely paroxysmal atrial fibrillation on dabigatran Home medications: Lisinopril, dabigatran, Lasix 40 mg p.o. daily PCP: Follows [facility] Social history: Quit drinking 2 years back, was a social drinker, nonsmoker for lifetime, secondhand smoker - smokes, no drugs. Lives with During the hospitalization, patient was diagnosed with bacterial pneumonia and CHF exacerbation on COVID 19 infection, she came in with AFIB with RVR, required O2 via oxymizer 15L, Started nebulized treatments, IV doxy, IV ceftriaxone 11/03, IV dexamethasone 6 mg daily starting 11/04, patient refused IV remdesivir till 11/07. IV diurseis was done with IV lasix, cardio was consulted - IV amiodarone protocol was started, and Digoxin loading dose given by barbering teacher, Echocardiogram: REMARKABLY DILATED AND HYPOKINETIC ALL CARDIAC CHAMBERS, LV EF IS ONLY 20% BY VISUAL IMPRESSION,MODERATELY SEVERE PULMONARY HYPERTENSION, RVSP IS 50 MM OF HG AND IS HIGH.IV amio switched to PO which she was refusing, and digoxin was continued, therapeutic lovenox was started 11/07 as platelets increased to IV iron 1 dose for symptomatic anemia, low ferritin and low iron.Strict I&Os. Daily weight. Fluid restrictions were followed. Cardiology recommended - Strongly recommended for a coronary angiogram with cardiac catheterization once she recovers from acute respiratory decompensation. States primary barbering teacher is at [facility]. Thank you for allowing me to participate in the management of this patient. 11/07 - Patient is requiring 6L oxymyzer, she is on diuretics IV and IV antibiotics, A/Ox3 and hemodynamically stable, she is stable to be transferred to [facility] for further management. Consults/Reason for consult ORDERING PHYSICIAN: JOHANA VELEZ MD PROCEDURE(s): CXRP - CHEST PORTABLE REASON: shortness of breath ORDER NUMBER(s): [id number], ACCESSION NUMBER(s): [id number] EXAM: XY CHEST PORTABLE HISTORY: shortness of breath TECHNIQUE: 1 view of the chest COMPARISON: XY CHEST XRAY 1 VIEW on DOS: 11/04/24 FINDINGS/IMPRESSION: LUNGS: Improved aeration in bilateral lower lobes however persistent bibasilar opacities with possible peripheral interstitial edema MEDIASTINUM: Unremarkable BONES: No acute osseous abnormality OTHER: None ATED BY: BRIAN CRAFT MD DICTATED DATE/TIME: 11/06/24 132 SIGNED BY: BRIAN CRAFT MD SIGNED DATE/TIME: 11/06/24 1325 Operations or Procedures ORDERING PHYSICIAN: FLORENTINO WARE PROCEDURE(s): ECIDC - ECHO 2D MODE CARDIAC DOP REASON: sob ORDER NUMBER(s): [id number], ACCESSION NUMBER(s): [id number] APPROVED REPORT EXAM: Two-dimensional and M-mode echocardiogram with Doppler and color Doppler. Blood Pressure: 96/63 mmHg INDICATION SOB RISK FACTORS Height: 5' 8", Weight: 150 DIMENSIONS LVDd 4.5 (3.8-5.7cm) LA (2D) 4.7 (1.9-4.0cm) Aortic Root 3.7 (2.0- 3.7cm) LVDs 4.0 (2.5-4.0cm) LA (MM) (1.9-4.0cm) Aortic Cusp Exc 1.7 (1.5- 2.0cm) EF (%) 30.0 (55-70%) Rt. Atrium 4.2 (1.9-4.0cm) Asc. Aorta cm IVSd 1.0 (0.7-1.1cm) RV (D) (1.8-2.4cm) PWd 1.1 (0.7-1.1cm) Mitral Valve Mitral Mitral Stenosis E wave 1.20m/s MV Mean GR. mmHg E/A ratio 0.0 2D MVA cm2 Aortic Valve Aortic Valve Aortic Stenosis V1 0.80m/s AO Mean GR. 4mmHg V2 1.40m/s AO Peak GR. 8mmHg LVOT Diameter 2.1 (1.8-2.4cm) Doppler TERRI 1.98cm2 Tricuspid Valve TR Velocity 3.20m/s RVSP 50mmHg Other Information Quality : Rhythm : Atrial Fibrillation Conclusion REMARKABLY DILATED AND HYPOKINETIC ALL CARDIAC CHAMBERS LV EF IS ONLY 20% BY VISUAL IMPRESSION IT IS DILATED CARDIOMYOPATHY MODERATE DEGREE MR MODERATELY SEVERE PULMONARY HYPERTENSION RVSP IS 50 MM OF HG AND IS HIGH NO EFFUSION SIGNED BY: ESTEVAN CHEW MD SIGNED DATE/TIME: 11/05/24 0206 CC: Condition at Discharge: Fair Final Diagnosis/Problems List Acute hypoxic respiratory failure Sepsis secondary to Acute superimposed bacterial pneumonia on COVID 19 infection Acute on chronic congestive heart failure exacerbation-NYHA class 3 AFib with RVR-chads Vasc score 4, has bled 1 History of hypertension, currently normotensive Dilated cardiomyopathy, ?ischemic NSTEMI 2 History of DC cardioversion Anemia, likely normocytic Thrombocytopenia ? Likely dabigatran induced Pulmonary hypertension, moderate degree History of peptic ulcer disease Osteoporosis Discharge Disposition: Acute Care Facility - [facility] Discharge Instruct/Medications Diet: Cardiac 2g Na,low cholest Activity: [id number] Follow Up/Referral: F/U with [facility] Medications: Per EMR Scheduled Lisinopril (Lisinopril), 1 TAB PO BID, (Reported) Omeprazole (Gnp Omeprazole), 1 TAB PO DAILY, (Reported) Miscellaneous Medications Bisoprolol Fumarate (Bisoprolol Fumarate), TAB PO, (Reported) Dabigatran Etexilate Mesylate (Dabigatran Etexilate), CAP PO, (Reported) Discharge Statement: "Patient was advised to return to the ER or call 911 if any headaches, dizziness, shortness of breath, chest pain, abdominal pain, bleeding, fevers, or worsening of medical condition. Patient was counseled about treatment plan, medications, possible side effects, patientverbalized understanding. All questions were answered to the best of my ability. This discharge took greater then 30 minutes in planning, reviewing documentation, counseling the patient, and discussing with other team members." ASSESSMENT ASSESSMENT Assessment Sepsis secondary to Acute superimposed bacterial pneumonia on COVID 19 infection AFib with RVR SHANIA PEREZ RESIDENT Nov 07, 2024 14:59
[2024-11-07] MEDS: REMDESIVIR 200mg in NS 210mL LOADING DOSE ADULT IV ONE (15:47)
[2024-11-07 15:51] LABS: Base Excess 2.5 mmol/L (-2.0-3.0)
[2024-11-07] MEDS: FUROSEMIDE 20 MG/2 ML VIAL IV SCH (19:09)
[2024-11-07] MEDS ORDERED: SACUBITRIL-VALSARTAN 24mg/26mg TAB PO SCH (22:00)
[2024-11-07] MEDS ORDERED: ENOXAPARIN SOD 100 MG/1 ML SYRINGE SC SCH (22:00)
[2024-11-08] MEDS ORDERED: DIGOXIN 0.125 MG TAB PO SCH (10:00)
[2024-11-08] MEDS ORDERED: SPIRONOLACTONE 25 MG TAB PO SCH (10:00)
[2024-11-08] MEDS ORDERED: EMPAGLIFLOZIN 10 MG TAB PO SCH (10:00)
--- NOTE | 2024-11-08 10:53 | ECG ---
[facility] Test Date: 2024-11-03 Test Time: 15:44:49 Pat Name: PILY MONTENEGRO Department: Room: 0239T Gender: F Recruiter Coordinator: JUAN C : 1950 Requested By: TEVIN RUIZ Order Number: [id number] Reading MD: Measurements Intervals [place] Rate: 127 P: 0 SD: 0 QRS: -9 QRSD: 60 T: 19 QT: 335 QTc: 488 Interpretive Statements Atrial fibrillation Ventricular premature complex Anterior infarct, old Please click the below link to view image of tracing.
[2024-11-08] MEDS ORDERED: REMDESIVIR 100mg in NS 230mL (5 DAY REGIMEN) IV SCH (15:00)
== END 2024-11-07 19:15 | disposition short-term general hospital (02) | DRG 871 ==
LOC: EDBD 20:31 → ER 20:31 → OVERFLOW 11-03 10:50 → ICU CENTRL 11-03 22:23 → TELE-EAST 11-07 13:52
PROVIDERS: ATTEND Internal Medicine Pulmonary Disease
PROC: XW033E5 Introduction of Remdesivir Anti-infective into Peripheral Vein, Percutaneous Approach, New Technology Group 5 (ICD-10-PCS; principal; 2024-11-04)
DX: A41.89 Other specified sepsis (principal); I21.A1 Myocardial infarction type 2; J96.01 Acute respiratory failure with hypoxia; J12.82 Pneumonia due to coronavirus disease 2019; J15.9 Unspecified bacterial pneumonia; U07.1 COVID-19; I50.23 Acute on chronic systolic (congestive) heart failure; E87.20 Acidosis, unspecified; R04.2 Hemoptysis; N39.0 Urinary tract infection, site not specified; N17.9 Acute kidney failure, unspecified; I42.0 Dilated cardiomyopathy; D69.6 Thrombocytopenia, unspecified; R73.9 Hyperglycemia, unspecified; D64.9 Anemia, unspecified; I11.0 Hypertensive heart disease with heart failure; M81.0 Age-related osteoporosis without current pathological fracture; I48.0 Paroxysmal atrial fibrillation; I27.20 Pulmonary hypertension, unspecified; I25.5 Ischemic cardiomyopathy; Z91.148 Patient's other noncompliance with medication regimen for other reason; Z82.5 Family history of asthma and other chronic lower respiratory diseases; Z80.0 Family history of malignant neoplasm of digestive organs; Z83.3 Family history of diabetes mellitus; Z87.11 Personal history of peptic ulcer disease; Z79.899 Other long term (current) drug therapy
CPT/HCPCS: 36415; 36600; 71045; 74018; 80048; 80053; 80061; 80320; 81001; 82306; 82607; 82728; 82805; 83036; 83540; 83550; 83605; 83615; 83735; 83880; 84443; 84484; 85007; 85025; 85027; 85045; 85379; 85610; 85652; 85730; 86141; 87040; 87081; 87086; 87426; 87804; 93005; 93306; 94640; 96374; 96375; G0378; J1100; J1756; J2470